=== PATIENT | female | born 1965 | race Caucasian/White ===

== ENCOUNTER → 2016-08-01 | Outpatient (CLI) | payer OTHER ==
--- NOTE | 2016-08-12 09:50 | MM ---
Reason for exam: screening (asymptomatic). Last mammogram was performed 5 years and 4 months ago. History: Patient is postmenopausal. Family history of breast cancer in paternal grandmother at age 80. Benign excisional biopsy of the right breast. Physical Findings: A clinical breast exam by your physician is recommended on an annual basis and results should be correlated with mammographic findings. MG Screening Mammo w CAD Bilateral CC and MLO view(s) were taken. Prior study comparison: March 19, 2011, mammogram, performed at [place]. The breast tissue is heterogeneously dense. This may lower the sensitivity of mammography. There is no discrete abnormality. No significant changes when compared with prior studies. ASSESSMENT: Benign, BI-RAD 2 RECOMMENDATION: Routine screening mammogram of both breasts in 1 year.
== END | disposition home or self-care (01) ==
LOC: RADMAMWWP 07:17
PROVIDERS: ATTEND Internal Medicine
DX: Z12.31 Encounter for screening mammogram for malignant neoplasm of breast (principal)

== ENCOUNTER → 2017-08-27 | Outpatient (CLI) | payer OTHER ==
--- NOTE | 2017-08-27 10:25 | MM ---
Reason for exam: clinical finding. Last mammogram was performed 1 year and 1 month ago. History: Patient is postmenopausal. Family history of breast cancer in paternal grandmother at age 80. Benign excisional biopsy of the right breast. Indicated problem(s): lump or thickening in the left breast. Physical Findings: Nurse did not find any significant physical abnormalities on exam. MG Diagnostic Mammo w CAD CHAD Bilateral CC and MLO view(s) were taken. Prior study comparison: August 01, 2016, bilateral MG screening mammo w CAD. March 19, 2011, mammogram, performed at [place]. There are scattered fibroglandular densities. There is no discrete abnormality. No significant new findings when compared with previous films. These results were verbally communicated with the patient and result sheet given to the patient on 08/27/17. ASSESSMENT: Benign, BI-RAD 2 RECOMMENDATION: Routine screening mammogram of both breasts in 1 year. Manage on a clinical basis with regard to palpable abnormality.
--- NOTE | 2017-08-27 10:34 | USB ---
Reason for exam: clinical finding. History: Patient is postmenopausal. Family history of breast cancer in paternal grandmother at age 80. Benign excisional biopsy of the right breast. Indicated problem(s): lump or thickening in the left breast. US Breast LT Left breast ultrasound includes all four quadrants, the retroareolar region and axilla. Finding demonstrates no cystic or solid lesion seen. These results were verbally communicated with the patient and result sheet given to the patient on 08/27/17. ASSESSMENT: Negative, BI-RAD 1 RECOMMENDATION: Routine screening mammogram of both breasts in 1 year. Manage on a clinical basis with regard to palpable abnormality.
== END | disposition home or self-care (01) ==
LOC: RADMAMWWP 08:43
PROVIDERS: ATTEND Internal Medicine
DX: N63.20 Unspecified lump in the left breast, unspecified quadrant (principal)
CPT/HCPCS: 77066

== ENCOUNTER → 2019-12-15 | Outpatient (CLI) | payer OTHER ==
[2019-12-15 17:59] LABS: Chol/HDL Ratio 4.15; LDL Cholesterol,Calculated 133.4 mg/dL (0.0-131.0); VLDL Calculation 30.6 mg/dL (5.00-40.00)
== END | disposition home or self-care (01) ==
LOC: LABWHC1 09:00
PROVIDERS: ATTEND Family Medicine
DX: E11.9 Type 2 diabetes mellitus without complications (principal); I10 Essential (primary) hypertension
CPT/HCPCS: 36415; 80061; 83036

== ENCOUNTER 2021-11-22 07:43 | Inpatient (IN) | payer MEDICAID, OTHER ==
--- NOTE | 2021-11-22 08:08 | ED ---
Psych HPI - General Source: patient, police, RN notes reviewed Mode of arrival: ambulatory Limitations: no limitations <Wilfred Holman - Last Filed: 11/22/21 11:43> <Joaquin Naryaanan - Last Filed: 11/22/21 16:05> - General Chief Complaint: Psychiatric Symptoms Stated Complaint: Mental Health supervisor curing room order Time Seen by Provider: 11/22/21 07:49 - History of Present Illness Initial Comments: This a 56-year-old female presents emergency Department with police for psychiatric evaluation. Patient was petitioned by family member as she's had a manic bizarre behavior. Patient's been having some paranoia. Patient's no prior much information as she has severe flight of ideas, no insight on current condition. She denies any medications she is not given Ancef she has any diagnosis of schizophrenia bipolar disorder. She does admit to some alcohol use occasionally no drug abuse. Patient denies any physical complaints. (Wilfred Holman) - Related Data Allergies Allergy/AdvReac Type Severity Reaction Status Date / Time No Known Allergies Allergy Verified 11/22/21 12:37 Review of Systems ROS Other: All systems not noted in ROS Statement are negative. <Wilfred Holman - Last Filed: 11/22/21 11:43> ROS Other: All systems not noted in ROS Statement are negative. <Joaquin Narayanan - Last Filed: 11/22/21 16:05> ROS Statement: Those systems with pertinent positive or pertinent negative responses have been documented in the HPI. Past Medical History Past Medical History: No Reported History History of Any Multi-Drug Resistant Organisms: None Reported Past Surgical History: No Surgical Hx Reported Past Psychological History: Anxiety Smoking Status: Current every day smoker Past Alcohol Use History: Occasional Past Drug Use History: None Reported <Wilfred Holman - Last Filed: 11/22/21 11:43> General Exam Limitations: no limitations General appearance: alert, in no apparent distress Head exam: Present: atraumatic, normocephalic, normal inspection Eye exam: Present: normal appearance, PERRL, EOMI. Absent: scleral icterus, conjunctival injection, periorbital swelling ENT exam: Present: normal exam, normal oropharynx, mucous membranes moist Neck exam: Present: normal inspection, full ROM. Absent: tenderness, meningismus, lymphadenopathy Respiratory exam: Present: normal lung sounds bilaterally. Absent: respiratory distress, wheezes, rales, rhonchi, stridor Cardiovascular Exam: Present: regular rate, normal rhythm, normal heart sounds. Absent: systolic murmur, diastolic murmur, rubs, gallop, clicks Neurological exam: Present: alert Psychiatric exam: Present: manic, other (Patient has severe flight of ideas, rambling thoughts.) <Wilfred Holman - Last Filed: 11/22/21 11:43> Course Vital Signs 11/22/21 07:46 Temperature 98.5 F Pulse Rate 101 H Respiratory 18 Rate Blood Pressure 126/83 O2 Sat by Pulse 98 Oximetry Medical Decision Making <Joaquin Narayanan - Last Filed: 11/22/21 16:05> - Medical Decision Making Patient will be admitted to inpatient psych. I completed the cert after evaluation of the patient. (Joaquin Narayanan) - Lab Data Lab Results 11/22/21 11/22/21 Range/Units 08:20 13:10 Urine Opiates Screen Not Detected (NotDetected) Ur Oxycodone Screen Not Detected (NotDetected) Urine Methadone Screen Not Detected (NotDetected) Ur Propoxyphene Screen Not Detected (NotDetected) Ur Barbiturates Screen Not Detected (NotDetected) U Tricyclic Antidepress Not Detected (NotDetected) Ur Phencyclidine Scrn Not Detected (NotDetected) Ur Amphetamines Screen Not Detected (NotDetected) U Methamphetamines Scrn Not Detected (NotDetected) U Benzodiazepines Scrn Not Detected (NotDetected) Urine Cocaine Screen Not Detected (NotDetected) U Marijuana (THC) Screen Not Detected (NotDetected) Coronavirus (PCR) Not Detected (Not Detectd) Disposition Time of Disposition: 11:57 <Wilfred Holman - Last Filed: 11/22/21 11:43> <Joaquin Narayanan - Last Filed: 11/22/21 16:05> Clinical Impression: Bipolar disorder Disposition: TRANSFER TO PSYCH HOSP/UNIT Condition: Fair
[2021-11-22 08:58] LABS: Amphetamine Screen,Urine Not Detected (NotDetected); Barbiturate Screen,Urine Not Detected (NotDetected); Benzodiazepines Screen,Urine Not Detected (NotDetected); Cocaine Screen,Urine Not Detected (NotDetected); Methadone Screen, Urine Not Detected (NotDetected); Opiate Screen,Urine Not Detected (NotDetected); Oxycodone Screen, Urine Not Detected (NotDetected); Phencyclidine Screen,Urine Not Detected (NotDetected); Tricyclic Antidepressant,Urine Not Detected (NotDetected); Urn Cannabinoid Scrn Not Detected (NotDetected)
[2021-11-22] MEDS ORDERED: HALOPERIDOL LACTATE 5 MG/ML 1 ML VIAL IM PRN (14:24)
[2021-11-22] MEDS ORDERED: LORazepam 1 MG TAB PO PRN (14:24)
[2021-11-22] MEDS ORDERED: MAG HYDROX/AL HYDROX/SIMETH 30 ML CUP PO PRN (14:24)
[2021-11-22] MEDS ORDERED: ACETAMINOPHEN TAB 325 MG TAB PO PRN (14:24)
[2021-11-22] MEDS ORDERED: haloperidoL 5 MG TAB PO PRN (14:26)
[2021-11-22] MEDS ORDERED: LORazepam 2 MG/ML INJ IM PRN (14:26)
[2021-11-22 16:05] LABS: Appearance,Urine Cloudy (Clear); Bacteria,Urine Occasional /hpf; Bilirubin,Urine Negative (Negative); Blood,Urine Negative (Negative); Color,Urine Yellow; Glucose,Urine (UA) Negative (Negative); Ketones,Urine Negative (Negative); Leukocyte Esterase,Urine Negative (Negative); Mucus,Urine Few /hpf; Nitrite,Urine Negative (Negative); PH, Urine 6.5 (5.0-8.0); Protein,Urine Trace (Negative); RBC,Urine 1 /hpf (0-5); Specific Gravity,Urine 1.025 (1.001-1.035); Squamous Epithelial Cell,Urine 2 /hpf (0-4); WBC,Urine 7 /hpf (0-5)
[2021-11-23] MEDS ORDERED: NICOTINE 14MG/24HR PATCH TRANSDERM SCH (09:00)
[2021-11-23 11:20] LABS: Basophils # (A) 0.1 k/uL (0-0.2); Basophils % (A) 1 %; Eosinophils # (A) 0.1 k/uL (0-0.7); Eosinophils % (A) 1 %; HCT 41.2 % (34.0-46.0); HGB 13.7 gm/dL (11.4-16.0); Lymphocytes # (A) 2.6 k/uL (1.0-4.8); Lymphocytes % (A) 25 %; MCH 30.3 pg (25.0-35.0); MCHC 33.3 g/dL (31.0-37.0); MCV 91.1 fL (80.0-100.0); Mean Platelet Volume 8.4; Monocytes # (A) 0.5 k/uL (0-1.0); Monocytes % (A) 5 %; Neutrophils # (A) 7.2 k/uL (1.3-7.7); Neutrophils % (A) 68 %; Platelet Count 243 k/uL (150-450); RBC 4.52 m/uL (3.80-5.40); RDW 12.1 % (11.5-15.5); WBC 10.6 k/uL (3.8-10.6)
[2021-11-23 11:57] LABS: ALT 18 U/L (4-34); AST 24 U/L (14-36); African American GFR (CKD) >90 (>60 ml/min/1.73 sqM); Albumin 4.5 g/dL (3.5-5.0); Alkaline Phosphatase 85 U/L (38-126); Anion Gap 9 mmol/L; Bilirubin, Delta 0.1 mg/dL (0.0-0.2); Bilirubin,Unconjugated 0.4 mg/dL (0.0-1.1); Blood Urea Nitrogen 14 mg/dL (7-17); Carbon Dioxide 24 mmol/L (22-30); Chloride 104 mmol/L (98-107); Glucose 99 mg/dL (74-99); Non-African American GFR(CKD) >90 (>60 ml/min/1.73 sqM); Potassium 4.3 mmol/L (3.5-5.1); Sodium 137 mmol/L (137-145); Total Bilirubin 0.5 mg/dL (0.2-1.3); Total Protein 7.2 g/dL (6.3-8.2)
--- NOTE | 2021-11-23 13:16 | P.HP ---
Psychiatric H&P - . H&P Date: 11/23/21 History & Physical: Allergies Allergy/AdvReac Type Severity Reaction Status Date / Time No Known Allergies Allergy Verified 11/22/21 12:37 Vital Signs Temp 97.9 F 11/23/21 07:12 Pulse 109 H 11/23/21 07:12 Resp 18 11/23/21 07:12 BP 120/85 11/23/21 07:12 Pulse Ox 98 11/23/21 07:12 FiO2 Intake & Output 11/22/21 11/23/21 11/23/21 18:59 06:59 18:59 Weight 73.074 kg Laboratory Last Values WBC 10.6 k/uL (3.8-10.6) 11/23/21 10:27 RBC 4.52 m/uL (3.80-5.40) 11/23/21 10:27 Hgb 13.7 gm/dL (11.4-16.0) 11/23/21 10:27 Hct 41.2 % (34.0-46.0) 11/23/21 10:27 MCV 91.1 fL (80.0-100.0) 11/23/21 10:27 MCH 30.3 pg (25.0-35.0) 11/23/21 10:27 MCHC 33.3 g/dL (31.0-37.0) 11/23/21 10:27 RDW 12.1 % (11.5-15.5) 11/23/21 10:27 Plt Count 243 k/uL (150-450) 11/23/21 10:27 MPV 8.4 11/23/21 10:27 Neutrophils % 68 % 11/23/21 10:27 Lymphocytes % 25 % 11/23/21 10:27 Monocytes % 5 % 11/23/21 10:27 Eosinophils % 1 % 11/23/21 10:27 Basophils % 1 % 11/23/21 10:27 Neutrophils # 7.2 k/uL (1.3-7.7) 11/23/21 10:27 Lymphocytes # 2.6 k/uL (1.0-4.8) 11/23/21 10:27 Monocytes # 0.5 k/uL (0-1.0) 11/23/21 10:27 Eosinophils # 0.1 k/uL (0-0.7) 11/23/21 10:27 Basophils # 0.1 k/uL (0-0.2) 11/23/21 10:27 Urine Color Yellow 11/22/21 08:20 Urine Appearance Cloudy (Clear) H 11/22/21 08:20 Urine pH 6.5 (5.0-8.0) 11/22/21 08:20 Ur Specific [place] 1.025 (1.001-1.035) 11/22/21 08:20 Urine Protein Trace (Negative) H 11/22/21 08:20 Urine Glucose (UA) Negative (Negative) 11/22/21 08:20 Urine Ketones Negative (Negative) 11/22/21 08:20 Urine Blood Negative (Negative) 11/22/21 08:20 Urine Nitrite Negative (Negative) 11/22/21 08:20 Urine Bilirubin Negative (Negative) 11/22/21 08:20 Urine Urobilinogen 2.0 mg/dL (<2.0) 11/22/21 08:20 Ur Leukocyte Esterase Negative (Negative) 11/22/21 08:20 Urine RBC 1 /hpf (0-5) 11/22/21 08:20 Urine WBC 7 /hpf (0-5) H 11/22/21 08:20 Ur Squamous Epith Cells 2 /hpf (0-4) 11/22/21 08:20 Urine Bacteria Occasional /hpf (None) H 11/22/21 08:20 Urine Mucus Few /hpf (None) H 11/22/21 08:20 Urine HCG, Qual Not Detected (Not Detectd) 11/22/21 08:20 Urine Opiates Screen Not Detected (NotDetected) 11/22/21 08:20 Ur Oxycodone Screen Not Detected (NotDetected) 11/22/21 08:20 Urine Methadone Screen Not Detected (NotDetected) 11/22/21 08:20 Ur Propoxyphene Screen Not Detected (NotDetected) 11/22/21 08:20 Ur Barbiturates Screen Not Detected (NotDetected) 11/22/21 08:20 U Tricyclic Antidepress Not Detected (NotDetected) 11/22/21 08:20 Ur Phencyclidine Scrn Not Detected (NotDetected) 11/22/21 08:20 Ur Amphetamines Screen Not Detected (NotDetected) 11/22/21 08:20 U Methamphetamines Scrn Not Detected (NotDetected) 11/22/21 08:20 U Benzodiazepines Scrn Not Detected (NotDetected) 11/22/21 08:20 Urine Cocaine Screen Not Detected (NotDetected) 11/22/21 08:20 U Marijuana (THC) Screen Not Detected (NotDetected) 11/22/21 08:20 Coronavirus (PCR) Not Detected (Not Detectd) 11/22/21 13:10 11/23/21 11:31 IDENTIFYING DATA: Patient is a 56-year-old female currently , homeless and has one son. HPI: Patient presented to the hospital yesterday with police escort for psychiatric evaluation. Patient apparently was petitioned by her family. Patient was seen to be disorganized, pressured in speech and also bizarre. Patient was admitted involuntarily to the mental health unit. Patient's UDS was negative. Patient was seen today by grant writer in the office and agreeable to speak. Patient had pressured speech, rambles flight of ideas. She was tangential/circumstantial. She spoke about trying to get to a skilled nursing and claims that she is "in between houses". She states that she is having financial difficulties and was not able to pay her rent. She states that she was walking down the side of the road with her bags in her hand and was pulled over by the police and taken to the hospital. She states that she does not know why. She has fairly poor insight into her condition. She does state that she has a history of bipolar disorder however took herself off her medication states that "I don't think I need them". She is grandiose and claims that she is "high strung". She is denying any depression today. Denying any anxiety. She does endorse some paranoia. She also is endorsing auditory hallucinations coming through the "baseboards in the wall". She states her sleep has been fair appetite as been fair. Patient denies any suicidal or homicidal ideations intent or plan. At this time patient denies any visual hallucinations. Patient admits to using cigarettes daily. PAST PSYCHIATRIC HISTORY: Patient states that she has a history of bipolar disorder. Patient denies being on any psychiatric medications. Patient denies any previous psychiatric hospitalizations. Patient denies any psychiatric outpatient follow-up. Patient denies any history of suicide attempts in the past. PMH:denies ALLERGIES: as per EMR CHEMICAL DEPENDENCY HISTORY: as per HPI FAMILY PSYCHIATRIC/SUBSTANCE USE HISTORY: denies SOCIAL HISTORY: Patient was born and raised in [place]. She states that she completed high school and also her bachelor's degree. She was unreliable historian of her social history. MENTAL STATUS EXAM: General Appearance: Patient appears to be dressed in home in street clothing, stated age is alert, difficult to redirect. Patient appears to have poor hygiene and grooming. Behavior: Patient is seated without any agitated behavior. Difficult to redirect. Speech: Patient's speech is rapid/pressured. Rambles. Mood/Affect: Patient reports their mood is "okay", affect is congruent and constricted. Suicidality/Homicidality: Patient denies having any homicidal ideation intent or plan. Denies any suicidal ideations intent or plan Perceptions: Patient denies any visual hallucinations at [place] auditory hallucinations. Though content/process: Tangential/circumstantial. Rambling, flight of ideas. Grandiosity. Memory and concentration: AOX3, grossly intact for the purposes of this session. Can spell "WORLD" backwards Judgment and insight: poor STRENGTHS/WEAKNESSES: strength is that patient is resilient. Weakness is that patient has poor judgment and is impulsive INTELLECT: average IMPRESSIONS: Bipolar disorder, current episode nasrin with psychotic features PLAN: -Patient is admitted under involuntary status to MHU for stabilization of psychiatric symptoms and safety. Patient has not signed adult voluntary form and medication consent and is placed in patient's chart. A second certification was completed and along with petition will be filed for court. -Medications : Will start patient on Depakote 250 mg 3 times a day for mood stabilization, paliperidone by mouth 3 mg daily at bedtime for mood stabilization/psychosis. -Ativan and Haldol PRN for agitation/aggression -Patient was informed of the risks, benefits and side effects of the medication -Internal Medicine consult to perform medical evaluation and physical. -NRT - nicotine patch -SW on board for discharge planning. Encourage patient to participate in groups to work on coping skills. Will await deferral and court date. 11/23/21 13:10
[2021-11-23] MEDS: DIVALPROEX ER 250 MG TAB.ER.24H PO SCH ×3 (13:33→21:15)
--- NOTE | 2021-11-23 14:41 | P.MDCNMH ---
History of Present Illness H&P Date: 11/23/21 This is a 56-year-old female male who was recently brought into the emergency department by the police as patient was having manic bazaar behavior as noted by family at home and patient was petitioned by family member and also having some increased paranoia and anxiety. Patient hesitant to provide any medical information on exam although did make mention that she follows or did follow with Dr. Ondina Gaffney in the outpatient setting and has been doing relatively well off any medications and did not need any medications for anything. Patient denies any medical history and also mentioned that she will contact us or a medical doctor if she seeks medical attention. Patient reported to smoking and occasional drinking and denies any other drug use. Patient is admitted on [address]. psychiatric unit petitioned for psychiatric evaluation. Patient is slightly anxious on exam and still exhibiting signs of paranoia. During the exam patient also reported she does not want Dr. Gaffney to be notified of this admission. Review Of Systems: Constitutional: No fever, no chills, no night sweats. No weight change. No weakness, fatigue or lethargy. No daytime sleepiness. EENT: No headache. No blurred vision or double vision, no loss of vision. No loss of Hearing, no ringing in the ears, no dizziness. No nasal drainage or congestion. No epistaxis. No sore throat. Lungs: No shortness of breath, cough, no sputum production. No wheezing. Cardiovascular: No chest pain, no lower extremity edema. No palpitations. No paroxysmal nocturnal dyspnea. No orthopnea. No lightheadedness or dizziness. No syncopal episodes. Abdominal: Reports some mild lower right quadrant abdominal pain. No nausea, vomiting. No diarrhea. No constipation. No bloody or tarry stools.. No loss of appetite. Genitourinary: No dysuria, increased frequency, urgency. No urinary retention. Musculoskeletal: No myalgias. No muscle weakness, no gait dysfunction, no frequent falls. No back pain. No neck pain. Integumentary: No wounds, no lesions. No rash or pruritus. No unusual bruising. No change in hair or nails. Neurologic: No aphasia. No facial droop. No change in mentation. No head injury. No headache. No paralysis. No paresthesia. Psychiatric: No depression. No anxiety. No mood swings. Endocrine: No abnormal blood sugars. No weight change. No excessive sweating or thirst. No cold intolerance. PHYSICAL EXAMINATION: GENERAL: The patient is alert and oriented x4, anxious, paranoid, Well developed, well nourished. HEENT: Pupils are round and equally reacting to light. EOMI. no scleral icterus. No conjunctival pallor. Normocephalic, atraumatic. No pharyngeal erythema. No thyromegaly. CARDIOVASCULAR: S1 and S2 muffled PULMONARY: Clear to auscultation with no wheezing or rhonchi noted. ABDOMEN: soft. non-distended, normoactive bowel sounds. No palpable organomegaly. Abdominal binder noted MUSCULOSKELETAL: No joint swelling or deformity. EXTREMITIES: No cyanosis, clubbing, or pedal edema. NEUROLOGICAL: Gross neurological examination did not reveal any focal deficits. Steady gait SKIN: No rashes. Assessment: Manic episode with psychotic features Racing thoughts Anxiety Possible bipolar disorder Continued ongoing nicotine dependence Petition by family for bizarre behavior Full code Plan: Recommend to continue with current medications and management per psychiatry services. Attempted to perform a complete history and physical on the patient while admitted to the inpatient psychiatric unit and patient initially was agreeable to the visit although became more paranoid and making multiple comments that she does not need medications or medical services and does not want her primary care provider Dr. Gaffney to be notified of this admission. Patient denies any chest pain or shortness of breath, denies lightheadedness or dizziness, reports she is not taking any medications in the outpatient setting, and denies any nausea or vomiting and is tolerating diet. Attempted to encourage the patient to follow-up with primary care provider to discuss any med ications once discharged from the psychiatric unit. She has been petitioned by family and brought here by police and involuntarily signed into the psychiatric unit. Labs were reviewed and within normal limits and urine drug screen along with Covid that was also reviewed and negative. Thank you for this consultation and please do not hesitate to contact us if needed. The impression and plan of care has been dictated by Jaimee Sanchez, nurse practitioner as directed. Dr. Vivi MD I have performed a history and examination and MDM of this patient, discussed the same with the dictator, and agree with the dictator's assessment and plan as written ,documented as a scribe. Based on total visit time, I have performed more than 50% of the visit. Any additional findings or plans will be noted. Past Medical History Past Medical History: No Reported History History of Any Multi-Drug Resistant Organisms: None Reported Past Surgical History: No Surgical Hx Reported Past Anesthesia/Blood Transfusion Reactions: No Reported Reaction Past Psychological History: Anxiety Smoking Status: Current every day smoker Past Alcohol Use History: None Reported, Occasional Past Drug Use History: None Reported Medications and Allergies Home Medications Medication Instructions Recorded Confirmed Type No Known Home Medications 11/22/21 11/22/21 History Allergies Allergy/AdvReac Type Severity Reaction Status Date / Time No Known Allergies Allergy Verified 11/22/21 12:37 Physical Exam Vitals: Vital Signs Temp Pulse Pulse Resp BP BP Pulse Ox 11/23/21 07:12 97.9 F 109 H 18 120/85 98 11/22/21 15:57 98 F 97 18 156/85 96 11/22/21 14:16 94 18 124/81 96 Intake and Output 11/22/21 11/23/21 11/23/21 22:59 06:59 14:59 Other: Weight 73.074 kg Cranial Nerve Examination - Cranial Nerves Cranial Nerve I- Olfactory: Intact Cranial Nerve II- Optic: Intact Cranial Nerve III- Oculomotor: Intact Cranial Nerve IV- Trochlear: Intact Cranial Nerve V- Trigeminal: Intact Cranial Nerve - Abducens: Intact Cranial Nerve VII- Facial: Intact Cranial Nerve VIII- Auditory: Intact Cranial Nerve IX- Glossopharyngeal: Intact Cranial Nerve X- Vagus: Intact Cranial Nerve XI- Accessory: Intact Cranial Nerve XII- Hypoglossal: Intact Results CBC & Chem 7: 11/23/21 10:27 11/23/21 10:27 Labs: Abnormal Lab Results - Last 24 Hours (Table) 11/22/21 Range/Units 08:20 Urine Appearance Cloudy H (Clear) Urine Protein Trace H (Negative) Urine WBC 7 H (0-5) /hpf Urine Bacteria Occasional H (None) /hpf Urine Mucus Few H (None) /hpf Assessment and Plan Time with Patient: Less than 30
[2021-11-23 18:04] LABS: Chol/HDL Ratio 3.63 Ratio; LDL Cholesterol,Calculated 124.9 mg/dL (0.0-131.0)
[2021-11-23] MEDS: PALIPERIDONE 3 MG TAB.ER.24 PO SCH (21:15)
[2021-11-24] MEDS: NICOTINE 14MG/24HR PATCH TRANSDERM SCH (08:37)
[2021-11-24] MEDS: DIVALPROEX ER 250 MG TAB.ER.24H PO SCH ×3 (08:38→20:39)
[2021-11-24] MEDS ORDERED: NICOTINE GUM (POLACRILEX) 2 MG GUM BUCCAL PRN (10:21)
--- NOTE | 2021-11-24 12:35 | P.PN ---
Subjective Progress Note Date: 11/24/21 Principal diagnosis: IMPRESSIONS: Bipolar disorder, current episode nasrin with psychotic features Patient is a 71 poor historian and continues to ramble with circumstantiality an d tangentiality and is unable to give any specific information Patient reports that she does not call hospitalization as hospitals but more like different residence and that she has been changing her residence multiple times She states that she has been in this residence few of the times She stated that she is also trying to change her residence to get a bigger place so she can accommodate more people Patient continues to ramble on with information that remains noncontributory and projective Reviewing the chart from the previous day reveals the following information: 'HPI: Patient presented to the hospital yesterday with police escort for psychiatric evaluation. Patient apparently was petitioned by her family. Patient was seen to be disorganized, pressured in speech and also bizarre. Patient was admitted involuntarily to the mental health unit. Patient's UDS was negative. Patient was seen today by scenario writer in the office and agreeable to speak. Patient had pressured speech, rambles flight of ideas. She was tangential/circumstantial. She spoke about trying to get to a alf and claims that she is "in between houses". She states that she is having financial difficulties and was not able to pay her rent. She states that she was walking down the side of the road with her bags in her hand and was pulled over by the police and taken to the hospital. She states that she does not know why. She has fairly poor insight into her condition. She does state that she has a his tory of bipolar disorder however took herself off her medication states that "I don't think I need them". She is grandiose and claims that she is "high strung". She is denying any depression today. Denying any anxiety. She does endorse some paranoia. She also is endorsing auditory hallucinations coming through the "baseboards in the wall". She states her sleep has been fair appetite as been fair. Patient denies any suicidal or homicidal ideations intent or plan. At this time patient denies any visual hallucinations. Patient admits to using cigarettes daily. MENTAL STATUS EXAM: General Appearance: Patient appears to be dressed in home in street clothing, stated age is alert, difficult to redirect. Patient appears to have poor hygiene and grooming. Behavior: Patient is seated without any agitated behavior. Difficult to redirect. Speech: Patient's speech is rapid/pressured. Rambles. Mood/Affect: Patient reports their mood is "okay", affect is congruent and constricted. Suicidality/Homicidality: Patient denies having any homicidal ideation intent or plan. Denies any suicidal ideations intent or plan Perceptions: Patient denies any visual hallucinations at [place] auditory maher llucinations. Though content/process: Tangential/circumstantial. Rambling, flight of ideas. Grandiosity. Memory and concentration: AOX3, grossly intact for the purposes of this session. Can spell "WORLD" backwards Judgment and insight: poor STRENGTHS/WEAKNESSES: strength is that patient is resilient. Weakness is that patient has poor judgment and is impulsive INTELLECT: average IMPRESSIONS: Bipolar disorder, current episode nasrin with psychotic features PLAN: -Patient is admitted under involuntary status to MHU for stabilization of psychiatric symptoms and safety. Patient has not signed adult voluntary form and medication consent and is placed in patient's chart. A second certification as also being completed and along with petition will be filed for court. -Medications : Patient has been started on on Depakote 250 mg 3 times a day for mood stabilization, paliperidone by mouth 3 mg daily at bedtime for mood stabilization/psychosis. -Ativan and Haldol PRN for agitation/aggression -Patient was informed of the risks, benefits and side effects of the medication -Internal Medicine consult to perform medical evaluation and physical. -NRT - nicotine patch -SW on board for discharge planning. Encourage patient to participate in groups to work on coping skills. Will await deferral and court date. Donald Riley M.D. 11/24/2021 Objective - Vital Signs Vital signs: Vital Signs Temp 97.8 F 11/24/21 06:56 Pulse 103 H 11/24/21 06:56 Resp 18 11/23/21 07:12 BP 147/60 11/24/21 06:56 Pulse Ox 97 11/24/21 06:56 FiO2 - Labs CBC & Chem 7: 11/23/21 10:27 11/23/21 10:27 Labs: Abnormal Lab Results - Last 24 Hours (Table) 11/23/21 Range/Units 10:27 Cholesterol 209.00 H (0.00-200.00) mg/dL
[2021-11-24] MEDS: PALIPERIDONE 3 MG TAB.ER.24 PO SCH (20:39)
[2021-11-25] MEDS: NICOTINE 14MG/24HR PATCH TRANSDERM SCH (08:30)
[2021-11-25] MEDS: DIVALPROEX ER 250 MG TAB.ER.24H PO SCH ×3 (08:30→21:44)
--- NOTE | 2021-11-25 11:58 | P.PN ---
Subjective Progress Note Date: 11/25/21 Principal diagnosis: IMPRESSIONS: Bipolar disorder, current episode nasrin with psychotic features Patient agreed to be seen by this sba underwriter in the hallway Patient states that she needs to be excused for a little while since she was talking to herself Patient seemed to be carrying on a conversation by herself walking down the hallway She seemed to be responding to internal stimuli She denies that she has any problems or issues Patient remains in denial and remains projective and continues to rationalize MENTAL STATUS EXAM: General Appearance: Patient appears to be dressed in hospital gown, difficult to redirect. Patient appears to have poor hygiene and grooming. Behavior: Patient is walking around without any agitated behavior. Difficult to redirect. Speech: Patient's speech is rapid/pressured. Rambles. Mood/Affect: Patient reports their mood is "okay", affect is congruent and constricted. Suicidality/Homicidality: Patient denies having any homicidal ideation intent or plan. Denies any suicidal ideations intent or plan Perceptions: Patient denies any visual hallucinations at [place] auditory hallucinations. Though content/process: Tangential/circumstantial. Rambling, flight of ideas. Grandiosity. Memory and concentration: AOX3, grossly intact for the purposes of this session. Judgment and insight: poor STRENGTHS/WEAKNESSES: strength is that patient is resilient. Weakness is that patient has poor judgment and is impulsive INTELLECT: average IMPRESSIONS: Bipolar disorder, current episode nasrin with psychotic features PLAN: -Patient is admitted under involuntary status to MHU for stabilization of psychiatric symptoms and safety. Patient has not signed adult voluntary form and medication consent and is placed in patient's chart. A second certification as also being completed and along with petition will be filed for court. -Medications : Patient has been started on on Depakote 250 mg 3 times a day for mood stabilization, paliperidone by mouth 3 mg daily at bedtime for mood stabilization/psychosis. -Ativan and Haldol PRN for agitation/aggression -Patient was informed of the risks, benefits and side effects of the medication -Internal Medicine consult to perform medical evaluation and physical. -NRT - nicotine patch -SW on board for discharge planning. Encourage patient to participate in groups to work on coping skills. Will await deferral and court date. Donald Riley M.D. 11/25/2021 Objective - Vital Signs Vital signs: Vital Signs Temp 97.6 F 11/25/21 06:46 Pulse 113 H 11/25/21 06:46 Resp 18 11/25/21 06:46 BP 113/75 11/25/21 06:46 Pulse Ox 98 11/25/21 06:46 FiO2 Intake & Output 11/24/21 11/25/21 11/25/21 18:59 06:59 18:59 Weight 73.9 kg - Labs CBC & Chem 7: 11/23/21 10:27 11/23/21 10:27
[2021-11-25] MEDS: PALIPERIDONE 3 MG TAB.ER.24 PO SCH (21:44)
[2021-11-26] MEDS: DIVALPROEX ER 250 MG TAB.ER.24H PO SCH (09:03)
[2021-11-26] MEDS: NICOTINE 14MG/24HR PATCH TRANSDERM SCH (09:04)
[2021-11-26] MEDS: DIVALPROEX ER 500 MG TAB.ER.24H PO SCH ×2 (15:57→20:14)
[2021-11-26] MEDS ORDERED: LORazepam 1 MG/0.5 ML VIAL IM PRN (18:42)
--- NOTE | 2021-11-26 18:49 | PN ---
PROGRESS NOTE DATE OF SERVICE: 11/26/2021 CHIEF COMPLAINT: The patient had disorganized and bizarre behavior. She had pressured speech. She was admitted on an involuntary basis. INTERVAL HISTORY: The patient has been doing fair. She had a quiet day yesterday though continued to be fairly symptomatic. She comes out on the unit. She wanders about. She did not attend groups. She was noted to be responding to internal stimuli. Staff documented that she slept 5 hours last night. Today she has been up and out on the unit. She continues to wander about. She has disorganized speech. She attended two groups to a limited extent. When I talked to the patient, it was difficult to engage much in conversation. She voiced no specific complaints or concerns. She appears to tolerate her psychotropic medications. MENTAL STATUS: Patient was restless. She gave fair eye contact. She made various comments that were disconnected from the subject at hand. At times she had some pressured speech and flight of ideas. She spoke in a rambling way and it was difficult to make sense of most of what she was referring to. Her affect was intense. Her mood was quiet. She appeared to be somewhat distressed. She continues to respond to internal stimuli. I was difficult to assess for thoughts of harm. ASSESSMENT: I will continue the current diagnosis and treatment plan. I will increase Depakote up to 500 mg twice a day. We will get a Depakote level tomorrow morning. I will increase her Invega to 6 mg a day. I briefly reviewed medication issues with the patient though kept the discussion limited, as she was not too inclined to engage in the conversation. We will focus on stabilization and discharge planning. MMTRISHL / ROBERTN: [id number] /
[2021-11-26] MEDS ORDERED: PALIPERIDONE 6 MG TAB.ER.24 PO SCH (21:00)
[2021-11-27] MEDS: NICOTINE 14MG/24HR PATCH TRANSDERM SCH (08:48)
[2021-11-27] MEDS: DIVALPROEX ER 500 MG TAB.ER.24H PO SCH ×2 (12:04→21:20)
--- NOTE | 2021-11-27 12:12 | P.PN ---
Progress Note - Text Progress Note Date: 11/27/21 Interval History: Patient was seen wandering the hallways and was directable and agreeable to kylie eldridge with policy writer in the office. Patient continues to have rapid speech however this has been improving. Continues to be tangential/circumstantial arbors improving mildly. She rambles at times during conversation. She states that her mood is "okay" and is denying any depression or anxiety today. She is showing improvement in her grandiosity. She continues to state that she is homeless and does not know where to go upon discharge. She states that she is only gone to some groups. She states that she is improving overall and is agreeable to continue with medications. She states that she was able to sleep better last night. At this time patient denies any suicidal or homical ideations, intent or plan. Patient denies any auditory, visual hallucinations and denies any paranoia or delusions. Patient denies any side effects from the medications and has been compliant with meds. She did claim that she is feeling dizziness and intolerability to the paliperidone at nighttime and is agreeable to have switched. Mental Status Exam: General Appearance: Patient appears to be dressed in home in street clothing, stated age is alert, directable. Patient appears to have improving hygiene and grooming. Behavior: Patient is seated without any agitated behavior. Difficult to redirect Speech: Patient's speech is rapid/pressured. Rambles, improving mildly Mood/Affect: Patient reports their mood is "ok", affect is congruent Suicidality/Homicidality: Patient denies having any homicidal ideation intent or plan. Denies any suicidal ideations intent or plan Perceptions: Patient denies any visual hallucinations and denies any auditory hallucinations. Though content/process: Tangential/circumstantial. Rambling, flight of ideas. Grandiosity. Improving. Memory and concentration: AOX3, grossly intact for the purposes of this session Judgment and insight: poor, improving mildly. IMPRESSIONS: Bipolar disorder, current episode nasrin with psychotic features Plan: -Patient continues to meet criteria for inpatient psychiatric admission for symptom stabilization and safety. Patient has not signed adult voluntary form and medication consent and was placed in patient's chart. -Medications: Discontinue paliperidone by mouth or place with Seroquel 100 mg daily at bedtime for mood stabilization/psychosis/insomnia. Continue on with Depakote 500 mg twice a day for mood stabilization. -When necessary Ativan and Haldol for agitation/aggression. -NRT -not needed as patient does not smoke -SW on board for discharge planning. Encouraged the patient to participate in milieu. Patient has deferral today with her criminal attorney. Likely discharge in 1-2 days.
[2021-11-27] MEDS ORDERED: PALIPERIDONE 3 MG TAB.ER.24 PO SCH (21:00)
[2021-11-27] MEDS: QUEtiapine 100 MG TAB PO SCH (21:20)
[2021-11-28] MEDS: DIVALPROEX ER 500 MG TAB.ER.24H PO SCH ×2 (09:05→20:03)
--- NOTE | 2021-11-28 12:06 | P.PN ---
Progress Note - Text Progress Note Date: 11/28/21 Interval History: Patient was seen wandering the hallways and was directable and agreeable to sp jazmyn with jingle writer in the office. Patient continues to ramble at times, tangential/circumstantial in thought process. She continues to demonstrate a fairly poor insight and judgment. She is denying any changes in her mood and states that she feels "fine". We spoke about her not deferring yesterday with the attorney recruiter however she was fairly focused on discharge today. She claims that she is going to some groups intending to participate. She is not endorsing paranoia or delusions today. She states that she was able to sleep better last night. At this time patient denies any suicidal or homical ideations, intent or plan. Patient denies any auditory, visual hallucinations and denies any paranoia or delusions. Patient denies any side effects from the medications and has been compliant with meds. Mental Status Exam: General Appearance: Patient appears to be dressed in home in street clothing, stated age is alert, directable. Patient appears to have improving hygiene and grooming. Behavior: Patient is seated without any agitated behavior. Her directable today. Speech: Patient's speech is rapid/pressured. Rambles, improving mildly Mood/Affect: Patient reports their mood is "fine", affect is congruent Suicidality/Homicidality: Patient denies having any homicidal ideation intent or plan. Denies any suicidal ideations intent or plan Perceptions: Patient denies any visual hallucinations and denies any auditory hallucinations. Though content/process: Tangential/circumstantial. Rambling, flight of ideas, improving Memory and concentration: AOX3, grossly intact for the purposes of this session Judgment and insight: poor, improving mildly. IMPRESSIONS: Bipolar disorder, current episode nasrin with psychotic features Plan: -Patient continues to meet criteria for inpatient psychiatric admission for symptom stabilization and safety. Patient has not signed adult voluntary form and medication consent and was placed in patient's chart. -Medications: Seroquel 100 mg daily at bedtime for mood stabilization/psychosis/insomnia. Continue on with Depakote 500 mg twice a day for mood stabilization. -When necessary Ativan and Haldol for agitation/aggression. -NRT -not needed as patient does not smoke -SW on board for discharge planning. Encouraged the patient to participate in milieu. Patient did not defer with attorney recruiter and awaiting court date on 12/12.
[2021-11-28] MEDS: QUEtiapine 100 MG TAB PO SCH (20:03)
[2021-11-29] MEDS: DIVALPROEX ER 500 MG TAB.ER.24H PO SCH ×2 (08:57→21:12)
--- NOTE | 2021-11-29 09:42 | P.PN ---
Progress Note - Text Progress Note Date: 11/29/21 Interval History: Patient was seen wandering the hallways and was directable and agreeable to kylie eldridge with underwriter in the office. Patient continues to ramble at times, tangential/circumstantial in thought process, mildly improving. She continues to demonstrate a fairly poor insight and judgment which appears to be chronic. she claims that her mood is okay at this time and is denying any depression or anxiety. She asked several questions about the court process and the involvement of the drugs today. She appears to be difficult to interrupt and redirect during conversation. She states that she slept fairly well last night. She is not endorsing paranoia or delusions today. At this time patient denies any suicidal or homical ideations, intent or plan. Patient denies any auditory, visual hallucinations and denies any paranoia or delusions. Patient denies any side effects from the medications and has been compliant with meds. Mental Status Exam: General Appearance: Patient appears to be dressed in home in street clothing, stated age is alert, directable. Patient appears to have improving hygiene and grooming Behavior: Patient is seated without any agitated behavior. more directable today. Speech: Patient's speech is rapid/pressured. Rambles, improving mildly Mood/Affect: Patient reports their mood is "ok", affect is congruent Suicidality/Homicidality: Patient denies having any homicidal ideation intent or plan. Denies any suicidal ideations intent or plan Perceptions: Patient denies any visual hallucinations and denies any auditory hallucinations. Though content/process: Tangential/circumstantial. Rambling, flight of ideas, improving Memory and concentration: AOX3, grossly intact for the purposes of this session Judgment and insight: chronically poor, improving mildly. IMPRESSIONS: schizoaffective disorder, bipolar type Plan: -Patient continues to meet criteria for inpatient psychiatric admission for symptom stabilization and safety. Patient has not signed adult voluntary form and medication consent and was placed in patient's chart. -Medications: increase Seroquel 150 mg daily at bedtime for mood stabilization/psychosis/insomnia. Continue on with Depakote 500 mg twice a day for mood stabilization. -check depakote level tomorrow morning. -When necessary Ativan and Haldol for agitation/aggression. -NRT -not needed as patient does not smoke -SW on board for discharge planning. Encouraged the patient to participate in milieu. Patient did not defer with trademark attorney and awaiting court date on 12/12.
[2021-11-29] MEDS ORDERED: QUEtiapine 50 MG TAB PO SCH (21:00)
[2021-11-30 07:04] VITALS: RESP 16
[2021-11-30] MEDS: DIVALPROEX ER 500 MG TAB.ER.24H PO SCH ×2 (08:44→09:43)
[2021-11-30] MEDS ORDERED: flUPHENAZine 2.5 MG/ML (MDV) 10 ML VIAL IM PRN (11:58)
--- NOTE | 2021-11-30 12:02 | P.PN ---
Progress Note - Text Progress Note Date: 11/30/21 Interval History: Patient was seen wandering the hallways and was directable and agreeable to kylie eldridge with greeting card writer in the office. Patient continues to ramble at times, tangential/circumstantial in thought process, mildly improving. She is still difficult to interrupt and redirect during conversation. She made some illogical statements during conversation and spoke about her marriage. She claims that she did not take the Depakote this morning however did not give a clear reason why. She claims that she would prefer to take the Depakote at nighttime at 750 mg dose. She was agreeable to have her Seroquel increased. She states that she is going to some groups. She states that she slept fairly well last night. She is not endorsing paranoia or delusions today. At this time patient denies any suicidal or homical ideations, intent or plan. Patient denies any auditory, visual hallucinations and denies any paranoia or delusions. Patient denies any side effects from the medications and has been compliant with meds. Mental Status Exam: General Appearance: Patient appears to be dressed in home in street clothing, stated age is alert, directable. Patient appears to have improving hygiene and grooming Behavior: Patient is seated without any agitated behavior. more directable today. Speech: Patient's speech is rapid/pressured. Rambles, improving mildly Mood/Affect: Patient reports their mood is "alright", affect is congruent Suicidality/Homicidality: Patient denies having any homicidal ideation intent or plan. Denies any suicidal ideations intent or plan Perceptions: Patient denies any visual hallucinations and denies any auditory hallucinations. Though content/process: Tangential/circumstantial. Rambling, flight of ideas, improving Memory and concentration: AOX3, grossly intact for the purposes of this session Judgment and insight: chronically poor, improving mildly. IMPRESSIONS: schizoaffective disorder, bipolar type Plan: -Patient continues to meet criteria for inpatient psychiatric admission for symptom stabilization and safety. Patient has not signed adult voluntary form and medication consent and was placed in patient's chart. -Medications: increase Seroquel 200 mg daily at bedtime for mood stabilization/psychosis/insomnia. As per patient's request, will change Depakote ER to 750 mg daily at bedtime for mood stabilization. -When necessary Ativan and Haldol for agitation/aggression. -NRT -not needed as patient does not smoke -SW on board for discharge planning. Encouraged the patient to participate in milieu. Patient did not defer with flatwork ironer and awaiting court date on 12/12. patient signed waive and stip. likely discharge friday if patient continues to improve over the weekend.
[2021-11-30] MEDS ORDERED: QUEtiapine 200 MG TAB PO SCH (21:00)
[2021-11-30] MEDS ORDERED: DIVALPROEX ER 250 MG TAB.ER.24H PO SCH (21:00)
--- NOTE | 2021-12-01 16:18 | P.PN ---
Progress Note - Text Progress Note Date: 12/01/21 Interval History: Patient knocked on the psychiatrist's office door and asked to be seen. She tita ears intrusive and irritable, can be difficult to redirect at times. Her thought process consists of loose associations, tangential/circumstantial, and thought content is laced with paranoid delusions. She rambles about moving out of state ([place] or [place])...."with my government experience, doesn't get data, news can only give limited information, has been limited over the past 3 years, has become homicidal in her apartment, not performing it...I would never do that, take out an innocent bystander, deep down gut feeling, strive for independence, I feel like family is getting sucked down the situation I'm in ....I'm in the unknown too, so moving to a different state where they could take me in as an individual, because I'm mid-libertarian, not republic or constitution party, ...." Birthday cards, gifts will not be sent, totally abused and fraudulant, [employer] of life in the rigoberto cristin was even hacked, but they call me paranoid. At this time patient denies any active suicidal or homicidal ideations, intent or plan. Patient denies any auditory, visual hallucinations. Patient denies any side effects from the medications, but argues about her medications, does not want to take medications and wants to take the lowest dose possible despite being still showing symptoms of nasrin and psychosis. Mental Status Exam: General Appearance: Patient appears to be dressed in home in street clothing. Patient appears to have improving hygiene and grooming Behavior: Patient is seated without any agitated behavior, is irritable and difficult to redirect. Speech: Patient's speech is rapid/pressured. Rambles. Mood/Affect: Patient reports their mood is "alright", affect is congruent Suicidality/Homicidality: Patient denies having any homicidal ideation intent or plan. Denies any suicidal ideations intent or plan Perceptions: Patient denies any visual hallucinations and denies any auditory hallucinations. Though content/process: Tangential/circumstantial. Rambling, flight of ideas, loose associations. Memory and concentration: AOX3, grossly intact for the purposes of this session Judgment and insight: chronically poor, improving mildly. IMPRESSIONS: Schizoaffective disorder, bipolar type Plan: -Patient continues to meet criteria for inpatient psychiatric admission for symptom stabilization and safety. Patient has not signed adult voluntary form and medication consent and was placed in patient's chart. -Medications: Increase Seroquel to 300 mg QHS for mood stabilization/psychosis/insomnia. Increase Depakote ER to 1000 mg QHS for mood stabilization. -When necessary Ativan and Haldol for agitation/aggression. -NRT -not needed as patient does not smoke -SW on board for discharge planning. Encouraged the patient to participate in milieu. Patient did not defer with employment attorney and awaiting court date on 12/12. patient signed waive and stip. likely discharge friday if patient continues to improve over the weekend.
[2021-12-01] MEDS: DIVALPROEX ER 500 MG TAB.ER.24H PO SCH (20:49)
[2021-12-01] MEDS: QUEtiapine 100 MG TAB PO SCH (20:51)
--- NOTE | 2021-12-02 18:11 | P.PN ---
Progress Note - Text Progress Note Date: 12/02/21 Interval History: Patient was found in her room, drinking her water. She is dismissive and condes cending on assessment. Her thought process consists of loose associations, with pressured speech. She states her Mood is "fine", and that her day has been "restful, perfect". She appears to minimize her mood symptoms in order to hasten discharge. Staff reports she continues to display manic symptoms, pressured speech, rambling, intrusive, talking about "a long lost brother" that she needs to find. She has been withdrawn and isolating to her room today, is focused on discharge and states she is "anxious" to talk to the director of social services tomorrow to get herself set up with [facility]. Her insight and judgment remain poor. She has been requesting discharge from the nurses multiple times today. She is partially compliant with medications, took only 100 mg of her 300 mg dose of Seroquel last night, and took only 500 mg of her 1000 mg dose of Depakote last night. Mental Status Exam: General Appearance: Patient appears to be stated age, dressed in casual attire. Behavior: Patient is seated without any agitated behavior, is irritable and dismissive. Speech: Patient's speech is rapid but less pressured. Mood/Affect: Patient reports their mood is "restful, perfect", affect is congruent Suicidality/Homicidality: Patient denies having any homicidal ideation intent or plan. Denies any suicidal ideations intent or plan Perceptions: Patient denies any visual hallucinations and denies any auditory hallucinations. Though content/process: Rambling, dismissive. Memory and concentration: AOX3, grossly intact for the purposes of this session Judgment and insight: chronically poor. IMPRESSIONS: Schizoaffective disorder, bipolar type Plan: -Patient continues to meet criteria for inpatient psychiatric admission for symptom stabilization and safety. Patient has not signed adult voluntary form an d medication consent and was placed in patient's chart. -Medications: Continue Seroquel 300 mg QHS for mood stabilization/psychosis/insomnia. Continue Depakote ER 1000 mg QHS for mood stabilization. Encourage medication compliance. -When necessary Ativan and Haldol for agitation/aggression. -NRT -not needed as patient does not smoke -SW on board for discharge planning. Encouraged the patient to participate in milieu. Patient did not defer with state attorney and awaiting court date on 12/12. patient signed waive and stip. likely discharge friday if patient continues to improve over the weekend.
[2021-12-02] MEDS: QUEtiapine 100 MG TAB PO SCH (21:26)
[2021-12-02] MEDS: DIVALPROEX ER 500 MG TAB.ER.24H PO SCH (21:26)
--- NOTE | 2021-12-03 11:11 | P.PN ---
Progress Note - Text Progress Note Date: 12/03/21 Interval History: Patient was seen wandering the hallways and was directable and agreeable to kylie eldridge with com writer in the office. Patient continues to ramble at times, tangential/circumstantial in thought process however this is improving significantly. She is more oriented and easier to direct during conversation. She is also more appropriate in her answers. She claims that she feels she is almost ready for discharge and does not know where she is going to go. She claims that she did try to speak with her sister over the phone however was fairly vague about what they talked about. She claims that her mood and anxiety of an improving. She states that she is going to some groups. She states that she slept fairly well last night. She is not endorsing paranoia or delusions today. At this time patient denies any suicidal or homical ideations, intent or plan. Patient denies any auditory, visual hallucinations and denies any paranoia or delusions. Patient denies any side effects from the medications and has been compliant with meds. Mental Status Exam: General Appearance: Patient appears to be dressed in home in street clothing, stated age is alert, directable. Patient appears to have improving hygiene and grooming Behavior: Patient is seated without any agitated behavior. more directable today. Speech: Patient's speech is rapid/pressured. Rambles, improving mildly Mood/Affect: Patient reports their mood is "ok", affect is congruent Suicidality/Homicidality: Patient denies having any homicidal ideation intent or plan. Denies any suicidal ideations intent or plan Perceptions: Patient denies any visual hallucinations and denies any auditory hallucinations. Though content/process: Tangential/circumstantial. Rambling, improving Memory and concentration: AOX3, grossly intact for the purposes of this session Judgment and insight: chronically poor, improving mildly. IMPRESSIONS: schizoaffective disorder, bipolar type Plan: -Patient continues to meet criteria for inpatient psychiatric admission for symptom stabilization and safety. Patient has not signed adult voluntary form and medication consent and was placed in patient's chart. -Medications: Seroquel 300 mg daily at bedtime for mood stabilization/psychosis/insomnia. Depakote ER 1000 mg daily at bedtime for mood stabilization. -When necessary Ativan and Haldol for agitation/aggression. -NRT -not needed as patient does not smoke -SW on board for discharge planning. Encouraged the patient to participate in milieu. patient signed waive and stip and is now on a treatment order. likely discharge tomorrow, patient will be visited by and enrolled in [facility] program through [facility] and also will be staying in a motel upon discharge.
[2021-12-03] MEDS: QUEtiapine 100 MG TAB PO SCH (20:46)
[2021-12-03] MEDS: DIVALPROEX ER 500 MG TAB.ER.24H PO SCH (20:46)
[2021-12-04 06:36] VITALS: BP 116/60; PULSE 65; TEMP 98
--- NOTE | 2021-12-04 09:27 | P.DS ---
Providers Date of admission: 11/22/21 14:22 Expected date of discharge: 12/04/21 Attending physician: Jaskaran Jmienes MD Consults: 11/22/21 14:24 Consult Physician Routine Consulting Provider: Jovanna Nichols Consult Reason/Comments: Medical H&P Do you want consulting provider notified?: Yes Primary care physician: Ondina Gaffney - Discharge Diagnosis(es) (1) Schizoaffective disorder, bipolar type Current Visit: Yes Status: Acute Priority: High Hospital Course: Admission HPI: Admission note was completed by freelance copywriter "Patient is a 56-year-old female currently , homeless and has one son. Patient presented to the hospital yesterday with police escort for psychiatric evaluation. Patient apparently was petitioned by her family. Patient was seen to be disorganized, pressured in speech and also bizarre. Patient was admitted involuntarily to the mental health unit. Patient's UDS was negative. Patient was seen today by freelance copywriter in the office and agreeable to speak. Patient had pressured speech, rambles flight of ideas. She was tangential/circumstantial. She spoke about trying to get to a [facility] and claims that she is "in between houses". She states that she is having financial difficulties and was not able to pay her rent. She states that she was walking down the side of the road with her bags in her hand and was pulled over by the police and taken to the hospital. She states that she does not know why. She has fairly poor insight into her condition. She does state that she has a history of bipolar disorder however took herself off her medication states that "I don't think I need them". She is grandiose and claims that she is "high strung". She is denying any depression today. Denying any anxiety. She does endorse some paranoia. She also is endorsing auditory hallucinations coming through the "baseboards in the wall". She states her sleep has been fair appetite as been fair. Patient denies any suicidal or homicidal ideations intent or plan. At this time patient denies any visual hallucinations. Patient admits to using cigarettes daily." Hospital course: Upon admission to the unit patient was admitted involuntarily on a petition and certificate and a second certificate was completed and faxed with the courts. Patient ended up not deferring with her employee benefits attorney however was taking medications and then later on agreeable to sign the waive and stip. Patient got along well with other patients on the unit and followed unit protocol. Patient was compliant with the medications and denied any side effects throughout hospital course. Patient was started on Seroquel and increased to a dose of 300 mg daily at bedtime for mood stabilization/insomnia. Patient was also started on Depakote ER 1000 mg daily at bedtime for mood stabilization. Patient spoke of her stressors and engaged in therapy both group and individual. Patient was also seen by medical team for history and physical exam. Throughout the course of the hospitalization patient gradually improved with regards to mood, anxiety, sleep and became more future oriented with improved insight and judgment. On the day of discharge patient denied any suicidal or homicidal ideations intent or plan denied any auditory or visual hallucinations. Patient endorsed wanting to live for her future and to find housing. The patient denied any access to guns or weapons. Patient denied any paranoia and did not endorse any delusions. Patient does not have a significant history of substance abuse and was counseled on abstaining from all substances including alcohol and marijuana. Patient was also counseled on the medications and need for regular compliance and was encouraged to follow-up with their outpatient appointment for mental health and also for primary care. Prior to discharge a family meeting will be arranged by geriatric social worker to answer any questions and ensure safety upon discharge. Patient's guardian/sister is going to pay for patient to stay in a motel until a more permanent housing situation arises. Mental status exam: General Appearance: Patient appears to be stated age is alert, pleasant, and cooperative. Patient is in no acute distress and has improved hygiene and grooming Behavior: Patient is calmly seated without any agitated behavior. Speech: Patient's speech is fluent and nonpressured. Rambling at times. Mood/Affect: Patient reports their mood is "good", affect is congruent and euthymic. Suicidality/Homicidality: Patient denies having any suicidal or homicidal ideation intent or plan. Perceptions: Patient denies any auditory or visual hallucinations. Though content/process: There is no evidence of any delusional thought content and thought process is linear and goal-directed. more future oriented Memory and concentration: AOX3, grossly intact for the purposes of this session. Can spell "WORLD" backwards correctly. Judgment and insight: chronically poor, however has improved with guarded prognosis Impression: Schizoaffective disorder, bipolar type Plan: -Continue with discharge today as patient has improved and stabilized psychiatrically and is not currently an imminent threat to herself and/or others. -Continue medications: Depakote ER 1000 mg daily at bedtime for mood stabilization, Seroquel 300 mg daily at bedtime for mood stabilization/insomnia. -Patient was counseled on the need for medication compliance and appropriate follow-up at mental health and also primary care for medical issues. Patient verbalized understanding and agreed. -Social work to arrange for and conduct family meeting to ensure safety upon discharge and answer any questions/concerns. Social work also to arrange for patients follow up appointments with [facility] for psychiatric care along with follow up with primary care provider. -Patient counseled on abstaining from recreational drugs and marijuana and alcohol. Was informed/educated on the adverse effects on their physical and mental health. Patient verbally agreed and understood. -Patient was instructed to return to the hospital or seek immediate medical care if their psychiatric or medical symptoms do worsen or reoccur. Allergies Allergy/AdvReac Type Severity Reaction Status Date / Time No Known Allergies Allergy Verified 11/22/21 12:37 Laboratory Results WBC 10.6 k/uL (3.8-10.6) 11/23/21 10:27 RBC 4.52 m/uL (3.80-5.40) 11/23/21 10:27 Hgb 13.7 gm/dL (11.4-16.0) 11/23/21 10:27 Hct 41.2 % (34.0-46.0) 11/23/21 10:27 MCV 91.1 fL (80.0-100.0) 11/23/21 10:27 MCH 30.3 pg (25.0-35.0) 11/23/21 10:27 MCHC 33.3 g/dL (31.0-37.0) 11/23/21 10:27 RDW 12.1 % (11.5-15.5) 11/23/21 10:27 Plt Count 243 k/uL (150-450) 11/23/21 10:27 MPV 8.4 11/23/21 10:27 Neutrophils % 68 % 11/23/21 10:27 Lymphocytes % 25 % 11/23/21 10:27 Monocytes % 5 % 11/23/21 10:27 Eosinophils % 1 % 11/23/21 10:27 Basophils % 1 % 11/23/21 10:27 Neutrophils # 7.2 k/uL (1.3-7.7) 11/23/21 10:27 Lymphocytes # 2.6 k/uL (1.0-4.8) 11/23/21 10:27 Monocytes # 0.5 k/uL (0-1.0) 11/23/21 10:27 Eosinophils # 0.1 k/uL (0-0.7) 11/23/21 10:27 Basophils # 0.1 k/uL (0-0.2) 11/23/21 10:27 Sodium 137 mmol/L (137-145) 11/23/21 10:27 Potassium 4.3 mmol/L (3.5-5.1) 11/23/21 10:27 Chloride 104 mmol/L (98-107) 11/23/21 10:27 Carbon Dioxide 24 mmol/L (22-30) 11/23/21 10:27 Anion Gap 9 mmol/L 11/23/21 10:27 BUN 14 mg/dL (7-17) 11/23/21 10:27 Creatinine 0.57 mg/dL (0.52-1.04) 11/23/21 10:27 Est GFR (CKD-EPI)AfAm >90 (>60 ml/min/1.73 sqM) 11/23/21 10:27 Est GFR (CKD-EPI)NonAf >90 (>60 ml/min/1.73 sqM) 11/23/21 10:27 Glucose 99 mg/dL (74-99) 11/23/21 10:[address] Glu mg/dL 124 11/23/21 10:27 Hemoglobin A1c 6.0 % (0.0-6.0) 11/23/21 10:27 Calcium 9.0 mg/dL (8.4-10.2) 11/23/21 10:27 Total Bilirubin 0.5 mg/dL (0.2-1.3) 11/23/21 10:27 Conjugated Bilirubin 0.0 mg/dL (0.0-0.3) 11/23/21 10:27 Unconjugated Bilirubin 0.4 mg/dL (0.0-1.1) 11/23/21 10:27 Delta Bilirubin 0.1 mg/dL (0.0-0.2) 11/23/21 10:27 AST 24 U/L (14-36) 11/23/21 10:27 ALT 18 U/L (4-34) 11/23/21 10:27 Alkaline Phosphatase 85 U/L (38-126) 11/23/21 10:27 Total Protein 7.2 g/dL (6.3-8.2) 11/23/21 10:27 Albumin 4.5 g/dL (3.5-5.0) 11/23/21 10:27 Triglycerides 133.00 mg/dL (0.00-149.00) 11/23/21 10:27 Cholesterol 209.00 mg/dL (0.00-200.00) H 11/23/21 10:27 LDL Cholesterol, Calc 124.9 mg/dL (0.0-131.0) 11/23/21 10:27 VLDL Cholesterol, Calc 26.60 mg/dL (5.00-40.00) 11/23/21 10:27 HDL Cholesterol 57.50 mg/dL (40.00-60.00) 11/23/21 10:27 Cholesterol/HDL Ratio 3.63 Ratio 11/23/21 10:27 TSH 1.820 mIU/L (0.465-4.680) 11/23/21 10:27 Urine Color Yellow 11/22/21 08:20 Urine Appearance Cloudy (Clear) H 11/22/21 08:20 Urine pH 6.5 (5.0-8.0) 11/22/21 08:20 Ur Specific [place] 1.025 (1.001-1.035) 11/22/21 08:20 Urine Protein Trace (Negative) H 11/22/21 08:20 Urine Glucose (UA) Negative (Negative) 11/22/21 08:20 Urine Ketones Negative (Negative) 11/22/21 08:20 Urine Blood Negative (Negative) 11/22/21 08:20 Urine Nitrite Negative (Negative) 11/22/21 08:20 Urine Bilirubin Negative (Negative) 11/22/21 08:20 Urine Urobilinogen 2.0 mg/dL (<2.0) 11/22/21 08:20 Ur Leukocyte Esterase Negative (Negative) 11/22/21 08:20 Urine RBC 1 /hpf (0-5) 11/22/21 08:20 Urine WBC 7 /hpf (0-5) H 11/22/21 08:20 Ur Squamous Epith Cells 2 /hpf (0-4) 11/22/21 08:20 Urine Bacteria Occasional /hpf (None) H 11/22/21 08:20 Urine Mucus Few /hpf (None) H 11/22/21 08:20 Urine HCG, Qual Not Detected (Not Detectd) 11/22/21 08:20 Urine Opiates Screen Not Detected (NotDetected) 11/22/21 08:20 Ur Oxycodone Screen Not Detected (NotDetected) 11/22/21 08:20 Urine Methadone Screen Not Detected (NotDetected) 11/22/21 08:20 Ur Propoxyphene Screen Not Detected (NotDetected) 11/22/21 08:20 Ur Barbiturates Screen Not Detected (NotDetected) 11/22/21 08:20 U Tricyclic Antidepress Not Detected (NotDetected) 11/22/21 08:20 Ur Phencyclidine Scrn Not Detected (NotDetected) 11/22/21 08:20 Ur Amphetamines Screen Not Detected (NotDetected) 11/22/21 08:20 U Methamphetamines Scrn Not Detected (NotDetected) 11/22/21 08:20 U Benzodiazepines Scrn Not Detected (NotDetected) 11/22/21 08:20 Urine Cocaine Screen Not Detected (NotDetected) 11/22/21 08:20 U Marijuana (THC) Screen Not Detected (NotDetected) 11/22/21 08:20 Coronavirus (PCR) Not Detected (Not Detectd) 11/22/21 13:10 Vital Signs Temp 98.0 F 12/04/21 06:35 Pulse 65 12/04/21 06:35 Resp 16 12/04/21 06:35 BP 116/60 12/04/21 06:35 Pulse Ox 95 12/04/21 06:35 FiO2 Patient Condition at Discharge: Stable Plan - Discharge Summary Discharge Rx Participant: Yes New Discharge Prescriptions: New Divalproex ER [Depakote ER] 1,000 mg PO HS 30 Days tab QUEtiapine [SEROquel] 300 mg PO HS 30 Days tab Discharge Medication List Divalproex ER [Depakote ER] 1,000 mg PO HS 30 Days tab 12/04/21 [Rx] QUEtiapine [SEROquel] 300 mg PO HS 30 Days tab 12/04/21 [Rx] Follow up Appointment(s)/Referral(s): Referral, Referral [Other] - 12/04/21 4:00 pm Ondina Gaffney MD [Primary Care Provider] - 1-2 days Activity/Diet/Wound Care/Special Instructions: Avoid the use of street drugs and alcohol. Take all prescriptions as prescribed. When you are in need of refills on your medications, please contact your medical provider and/or outpatient psychiatrist to have this done. Please go to scheduled outpatient appointment for aftercare treatment. If symptoms return or become worse, call the crisis line at and/or go to the nearest emergency room for evaluation. Discharge Disposition: OTHER INSTITUTION NOT DEFINED
== END 2021-12-04 16:40 | disposition home or self-care (01) | DRG 885 ==
LOC: EC 07:43 → 3MHU 14:22
PROVIDERS: ADMIT Psychiatry & Neurology Psychiatry; ATTEND Psychiatry & Neurology Psychiatry
DX: F25.0 Schizoaffective disorder, bipolar type (principal); F17.210 Nicotine dependence, cigarettes, uncomplicated; F41.9 Anxiety disorder, unspecified; R42 Dizziness and giddiness; T43.595A Adverse effect of other antipsychotics and neuroleptics, initial encounter; G47.00 Insomnia, unspecified; Z59.00 Homelessness unspecified; Z63.5 Disruption of family by separation and divorce; Z91.83 Wandering in diseases classified elsewhere; Z20.822 Contact with and (suspected) exposure to COVID-19; Z28.21 Immunization not carried out because of patient refusal; Z71.89 Other specified counseling
CPT/HCPCS: 80053; 80061; 80306; 81001; 81025; 82075; 82248; 83036; 84443; 85025; 87635; 99285

== ENCOUNTER 2021-12-17 12:11 | Inpatient (IN) | payer MEDICARE, OTHER ==
--- NOTE | 2021-12-17 12:53 | ED ---
General Adult HPI - General Chief complaint: Psychiatric Symptoms Stated complaint: mental health Time Seen by Provider: 12/17/21 12:30 Source: patient, police, RN notes reviewed, old records reviewed Mode of arrival: ambulatory Limitations: no limitations - History of Present Illness Initial comments: This is a 56-year-old female presents emergency Department under a court order. Patient refuses to cooperate. Patient states she is not going to talk about any of her mental health history and most of the psychiatrist. Patient will not answer any of my questions relative to mental health. She did state she has no physical complaints today. Patient denies any fever chills or cough. Patient denies any injuries patient denies any pain or difficulty breathing. - Related Data Previous Rx's Medication Instructions Recorded Divalproex ER [Depakote ER] 1,000 mg PO HS 30 Days tab 12/04/21 QUEtiapine [SEROquel] 300 mg PO HS 30 Days tab 12/04/21 Allergies Allergy/AdvReac Type Severity Reaction Status Date / Time No Known Allergies Allergy Verified 12/17/21 13:45 Review of Systems ROS Statement: Those systems with pertinent positive or pertinent negative responses have been documented in the HPI. ROS Other: All systems not noted in ROS Statement are negative. Past Medical History Past Medical History: No Reported History History of Any Multi-Drug Resistant Organisms: None Reported Past Surgical History: No Surgical Hx Reported Past Anesthesia/Blood Transfusion Reactions: No Reported Reaction Past Psychological History: Anxiety Smoking Status: Current every day smoker Past Alcohol Use History: None Reported, Occasional Past Drug Use History: None Reported General Exam - General Exam Comments Initial Comments: GENERAL: Patient is well-developed and well-nourished. Patient is nontoxic and well- hydrated and is in no acute distress. ENT: Neck is soft and supple. No significant lymphadenopathy is noted. Oropharynx is clear. Moist mucous membranes. Neck has full range of motion without eliciting any pain. EYES: The sclera were anicteric and conjunctiva were pink and moist. Extraocular movements were intact and pupils were equal round and reactive to light. Eyelids were unremarkable. PULMONARY: Unlabored respirations. Good breath sounds bilaterally. No audible rales rhonchi or wheezing was noted. CARDIOVASCULAR: There is a regular rate and rhythm without any murmurs gallops or rubs. ABDOMEN: Soft and nontender with normal bowel sounds. SKIN: Skin is clear with no lesions or rashes and otherwise unremarkable. NEUROLOGIC: Patient is alert and oriented x3. Cranial nerves II through XII are grossly intact. Motor and sensory are also intact. Normal speech, volume and content. Symmetrical smile. MUSCULOSKELETAL: Normal extremities with adequate strength and full range of motion. LYMPHATICS: No significant lymphadenopathy is noted PSYCHIATRIC: Patient refuses to answer any of my questions but she is somewhat hyperverbal and has told me she is not going to cooperate with me. Patient also states that everybody is lying about her. Limitations: no limitations Course Vital Signs 12/17/21 12:26 Temperature 98.8 F Pulse Rate 116 H Respiratory 18 Rate Blood Pressure 160/104 O2 Sat by Pulse 95 Oximetry Medical Decision Making - Lab Data Lab Results 12/17/21 Range/Units 13:06 Urine Opiates Screen Not Detected (NotDetected) Ur Oxycodone Screen Not Detected (NotDetected) Urine Methadone Screen Not Detected (NotDetected) Ur Propoxyphene Screen Not Detected (NotDetected) Ur Barbiturates Screen Not Detected (NotDetected) U Tricyclic Antidepress Not Detected (NotDetected) Ur Phencyclidine Scrn Not Detected (NotDetected) Ur Amphetamines Screen Not Detected (NotDetected) U Methamphetamines Scrn Not Detected (NotDetected) U Benzodiazepines Scrn Not Detected (NotDetected) Urine Cocaine Screen Not Detected (NotDetected) U Marijuana (THC) Screen Not Detected (NotDetected) Disposition Clinical Impression: Acute psychosis, Medical non-compliance Disposition: ADMITTED IP TO THIS HOSP Referrals: Ondina Gaffney MD [Primary Care Provider] - 1-2 days Time of Disposition: 17:46
[2021-12-17 13:35] LABS: Amphetamine Screen,Urine Not Detected (NotDetected); Barbiturate Screen,Urine Not Detected (NotDetected); Benzodiazepines Screen,Urine Not Detected (NotDetected); Cocaine Screen,Urine Not Detected (NotDetected); Methadone Screen, Urine Not Detected (NotDetected); Opiate Screen,Urine Not Detected (NotDetected); Oxycodone Screen, Urine Not Detected (NotDetected); Phencyclidine Screen,Urine Not Detected (NotDetected); Tricyclic Antidepressant,Urine Not Detected (NotDetected); Urn Cannabinoid Scrn Not Detected (NotDetected)
[2021-12-17] MEDS ORDERED: MAGNESIUM HYDROXIDE 2,400 MG/10 ML CUP PO PRN (23:17)
[2021-12-17] MEDS ORDERED: LORazepam 1 MG TAB PO PRN (23:17)
[2021-12-17] MEDS ORDERED: MAG HYDROX/AL HYDROX/SIMETH 30 ML CUP PO PRN (23:17)
[2021-12-17] MEDS ORDERED: HALOPERIDOL LACTATE 5 MG/ML 1 ML VIAL IM PRN (23:17)
[2021-12-17] MEDS ORDERED: ACETAMINOPHEN TAB 325 MG TAB PO PRN (23:17)
[2021-12-17] MEDS ORDERED: LORazepam 2 MG/ML INJ IM PRN (23:19)
[2021-12-17] MEDS ORDERED: haloperidoL 5 MG TAB PO PRN (23:19)
[2021-12-18] MEDS ORDERED: NICOTINE 14MG/24HR PATCH TRANSDERM SCH (09:00)
--- NOTE | 2021-12-18 10:33 | P.HP ---
Psychiatric H&P - . H&P Date: 12/18/21 History & Physical: Allergies Allergy/AdvReac Type Severity Reaction Status Date / Time No Known Allergies Allergy Verified 12/17/21 13:45 Vital Signs Temp 97.8 F 12/18/21 00:06 Pulse 91 12/18/21 00:06 Resp 18 12/18/21 00:06 BP 128/84 12/18/21 00:06 Pulse Ox 96 12/18/21 00:06 FiO2 Intake & Output 12/17/21 12/18/21 12/18/21 18:59 06:59 18:59 Weight 83.915 kg 72.178 kg Laboratory Last Values Urine Opiates Screen Not Detected (NotDetected) 12/17/21 13:06 Ur Oxycodone Screen Not Detected (NotDetected) 12/17/21 13:06 Urine Methadone Screen Not Detected (NotDetected) 12/17/21 13:06 Ur Propoxyphene Screen Not Detected (NotDetected) 12/17/21 13:06 Ur Barbiturates Screen Not Detected (NotDetected) 12/17/21 13:06 U Tricyclic Antidepress Not Detected (NotDetected) 12/17/21 13:06 Ur Phencyclidine Scrn Not Detected (NotDetected) 12/17/21 13:06 Ur Amphetamines Screen Not Detected (NotDetected) 12/17/21 13:06 U Methamphetamines Scrn Not Detected (NotDetected) 12/17/21 13:06 U Benzodiazepines Scrn Not Detected (NotDetected) 12/17/21 13:06 Urine Cocaine Screen Not Detected (NotDetected) 12/17/21 13:06 U Marijuana (THC) Screen Not Detected (NotDetected) 12/17/21 13:06 Coronavirus (PCR) Not Detected (Not Detectd) 12/17/21 19:50 12/18/21 10:00 IDENTIFYING DATA: Patient is a 56-year-old female currently , homeless and has one son. HPI: Patient presented to the hospital yesterday on a pickup order currently on a mental health treatment in order. Patient apparently was a poor historian and uncooperative in the ER and did not believe that she was on a court order. Urine drug screen was negative. Patient was admitted last to the mental health unit less than a month ago and was discharged on Depakote and Seroquel. She signed a waive and stip at that time with her jig and fixture maker and agreed to be on a o rder. Patient apparently did not take any medications once she left the hospital. Today she was seen wandering the hallways and agreeable speech pathology teacher. She was responding to internal stimuli. She was rambling, tangential and has loose associations. She had a flight of ideas. She was bizarre in her speech and thought content. She spoke negatively about her medication and states that "they made me sick" and also claims that she does not need them any longer. Very poor insight and judgment. Difficult to redirect during conversation. Denies any auditory or visual hallucinations. Denies any suicidal or homicidal ideations intent or plan. Claims that she is smoking cigarettes only, denies any other recreational drug use. PAST PSYCHIATRIC HISTORY: Patient states that she has a history of schizoaffective disorder. Patient denies being on any psychiatric medications and stopped taking her Depakote and Seroquel after her previous discharge from the mental health unit in November 2021. Patient denies any psychiatric outpatient follow-up with [facility]. Patient denies any history of suicide attempts in the past. PMH:denies ALLERGIES: as per EMR CHEMICAL DEPENDENCY HISTORY: as per HPI FAMILY PSYCHIATRIC/SUBSTANCE USE HISTORY: denies SOCIAL HISTORY: Patient was born and raised in [place]. She states that she completed high school and also her bachelor's degree. She was unreliable historian of her social history. MENTAL STATUS EXAM: General Appearance: Patient appears to be dressed in home in street clothing, stated age is alert, difficult to redirect. Patient appears to have poor hygiene and grooming. Behavior: Patient is seated without any agitated behavior. Difficult to redirect. Speech: Patient's speech is rapid/pressured. Rambles. Bizarre. Mood/Affect: Patient reports their mood is "fine", affect is congruent and constricted. Suicidality/Homicidality: Patient denies having any homicidal ideation intent or plan. Denies any suicidal ideations intent or plan Perceptions: Patient denies any visual hallucinations at [place] auditory hallucinations. Though content/process: Tangential/circumstantial. Rambling, flight of ideas. Grandiosity. It is our content. Memory and concentration: AOX3, grossly intact for the purposes of this session. Cannot spell "WORLD" backwards Judgment and insight: poor STRENGTHS/WEAKNESSES: strength is that patient is resilient. Weakness is that patient has poor judgment and is impulsive and noncompliant with treatment and follow-up. INTELLECT: average IMPRESSIONS: Schizoaffective disorder, bipolar type nicotine dependence PLAN: -Patient is admitted under involuntary statusas patient is currently on an ARABELLA to the MHU for stabilization of psychiatric symptoms and safety. -Medications : Depakote 1000 mg QHS for mood stabilization, will start risperdal 1 mg bid for psychosis and mood stabilization/psychosis as apparently patient did well on this in the past. PAtient will need to be transitioned onto ELAINE to ensure compliance. -Ativan and Haldol PRN for agitation/aggression -Patient was informed of the risks, benefits and side effects of the medication -Internal Medicine consult to perform medical evaluation and physical. -NRT - nicotine patch -SW on board for discharge planning. Encourage patient to participate in groups to work on coping skills. currently on an ARABELLA. will need to started on a ELAINE frederic richardson d.c 12/18/21 10:15
[2021-12-18] MEDS: risperiDONE 1 MG TAB PO SCH ×2 (10:41→21:21)
--- NOTE | 2021-12-18 11:27 | P.CONS ---
History of Present Illness - Reason for Consult Medical clearance - History of Present Illness Patient is a 56-year-old female is acutely psychotic but pleasant and very tough historian because of her tangentiality flight of ideas lack of train of thought. Pressured speech. Patient states that she that she hurt her finger although doesn't appear to have any infection at this time. Patient wanted me to check her pulse but it didn't let me examine. Patient doesn't do any straight answers regarding smoking use and alcohol use. REVIEW OF SYSTEMS: Unable to obtain much of the review of systems although mostly negative PHYSICAL EXAMINATION: GENERAL: The patient is alert and oriented x3, not in any acute distress. Well developed, well nourished. HEENT: Pupils are round and equally reacting to light. EOMI. No scleral icterus. No conjunctival pallor. Normocephalic, atraumatic. No pharyngeal erythema. No thyromegaly. SKIN: No rashes. Patient had a small heel ulcer from her injury in the right index finger proximally. Most of the physical exam is limited as patient is noncooperative Assessment and plan -Acute psychosis patient is highly noncooperative further management as per psychiatry. Patient appears to be medically stable at this time -Tachycardia secondary to acute psychosis no further intervention at this time from medical perspective Past Medical History Past Medical History: No Reported History History of Any Multi-Drug Resistant Organisms: None Reported Past Surgical History: No Surgical Hx Reported Past Anesthesia/Blood Transfusion Reactions: No Reported Reaction Past Psychological History: Anxiety Smoking Status: Current every day smoker Past Alcohol Use History: None Reported, Occasional Past Drug Use History: None Reported Medications and Allergies Home Medications Medication Instructions Recorded Confirmed Type Divalproex ER [Depakote ER] 1,000 mg PO HS 30 Days tab 12/04/21 12/17/21 Rx QUEtiapine [SEROquel] 300 mg PO HS 30 Days tab 12/04/21 12/17/21 Rx Allergies Allergy/AdvReac Type Severity Reaction Status Date / Time No Known Allergies Allergy Verified 12/17/21 13:45 Physical Exam Vitals: Vital Signs Temp Pulse Pulse Resp BP BP Pulse Ox 12/18/21 00:06 97.8 F 91 18 128/84 96 12/17/21 12:26 98.8 F 116 H 18 160/104 95 Intake and Output 12/17/21 12/18/21 12/18/21 22:59 06:59 14:59 Other: Weight 72.178 kg
[2021-12-18] MEDS ORDERED: QUEtiapine 100 MG TAB PO SCH (21:00)
[2021-12-18] MEDS ORDERED: DIVALPROEX ER 500 MG TAB.ER.24H PO SCH (21:00)
[2021-12-19] MEDS: risperiDONE 1 MG TAB PO SCH (07:49)
--- NOTE | 2021-12-19 11:39 | P.PN ---
Progress Note - Text Progress Note Date: 12/19/21 Interval History: Patient was seen wandering the hallways and was directable and agreeable to kylie eldridge with insurance writer in the office. Patient continues to ramble at times. Illogical and disorganized. She states that she is doing "fine" and continues to have very poor insight and judgment. She continues to believe that she does not need medications. She was difficult to redirect during conversation and made several bizarre statements. She states that she slept fairly last night. She has to maher ve her Depakote switched to the liquid formulation as she had trouble swallowing the pills. Improving appetite. She has been going to some groups. At this time patient denies any suicidal or homical ideations, intent or plan. Patient denies any auditory, visual hallucinations and denies any paranoia or delusions. Patient denies any side effects from the medications and has been compliant with meds. Mental Status Exam: General Appearance: Patient appears to be dressed in home in street clothing, stated age is alert, difficult to redirect. Patient appears to have improving hygiene and grooming. Behavior: Patient is seated without any agitated behavior. Difficult to redirect. Speech: Patient's speech is rapid/pressured. Rambles. Bizarre. Mood/Affect: Patient reports their mood is "fine", affect is congruent and constricted. Suicidality/Homicidality: Patient denies having any homicidal ideation intent or plan. Denies any suicidal ideations intent or plan Perceptions: Patient denies any visual hallucinations at [place] auditory hallucinations. Though content/process: Tangential/circumstantial. Rambling, flight of ideas. Grandiosity, improving mildly. Memory and concentration: AOX3, grossly intact for the purposes of this session Judgment and insight: poor IMPRESSIONS: Schizoaffective disorder, bipolar type nicotine dependence Plan: -Patient continues to meet criteria for inpatient psychiatric admission for symptom stabilization and safety. Patient has not signed medication consent and was placed in patient's chart. -Medications: Switch Depakote to Depakene, 750 mg daily at bedtime for mood stabilization. Increase Risperdal to 2 mg twice a day for psychosis/mood stabilization. Plan will be to transition patient onto long-acting injection to ensure compliance. -When necessary Ativan and Haldol for agitation/aggression. -NRT - nicotine patch -SW on board for discharge planning. Encouraged the patient to participate in milieu. currently on an ARABELLA. will need to started on a ELAINE prior to d.c
[2021-12-19] MEDS: risperiDONE 2 MG TAB PO SCH (20:48)
[2021-12-19] MEDS ORDERED: VALPROIC ACID ORAL SOLN 250 MG/5 ML CUP PO SCH (21:00)
[2021-12-20] MEDS: risperiDONE 2 MG TAB PO SCH (08:41)
--- NOTE | 2021-12-20 09:22 | P.PN ---
Progress Note - Text Progress Note Date: 12/20/21 Interval History: Patient was seen wandering the hallways and was directable and agreeable to sp suzannek with designer writer day. Patient continues to ramble at times and was difficult to redirect. She appears to have improvement in her thought process and is more logical today. She was tangential/circumstantial. She claims that she is doing "okay" and states that she had more close dropped off yesterday. She was not endorsing any delusions today and was not acting bizarre. She asked more appropriate questions to designer writer about discharge and about her medications. She states that she is tolerating them well at this time. She states that she slept fairly last night. She claims that she is doing better with the Depakene liquid formulation and wants to remain on this. Improving appetite. She has been going to some groups. At this time patient denies any suicidal or homical ideations, intent or plan. Patient denies any auditory, visual hallucinations and denies any paranoia or delusions. Patient denies any side effects from the medications and has been compliant with meds. Mental Status Exam: General Appearance: Patient appears to be dressed in home in street clothing, stated age is alert, difficult to redirect. Patient appears to have improving hygiene and grooming. Behavior: Patient is seated without any agitated behavior. Difficult to redirect, improving mildly Speech: Patient's speech is rapid/pressured. Rambles. Mood/Affect: Patient reports their mood is "ok", affect is congruent and constricted. Suicidality/Homicidality: Patient denies having any homicidal ideation intent or plan. Denies any suicidal ideations intent or plan Perceptions: Patient denies any visual hallucinations at dinner and any auditory hallucinations. Though content/process: Tangential/circumstantial. Rambling, flight of ideas, improving mildly. Memory and concentration: AOX3, grossly intact for the purposes of this session Judgment and insight: Chronically poor, improving mildly IMPRESSIONS: Schizoaffective disorder, bipolar type nicotine dependence Plan: -Patient continues to meet criteria for inpatient psychiatric admission for symptom stabilization and safety. Patient has not signed medication consent and was placed in patient's chart. -Medications: Increase Depakene, 1000 mg daily at bedtime for mood stabilization. Increase Risperdal to 3 mg twice a day for psychosis/mood stabilization. Plan will be to transition patient onto long-acting injection to ensure compliance. -When necessary Ativan and Haldol for agitation/aggression. -NRT - nicotine patch -SW on board for discharge planning. Encouraged the patient to participate in milieu. currently on an ARABELLA. will need to started on a ELAINE prior to d.c. likely discharge next week.
[2021-12-20] MEDS: VALPROIC ACID ORAL SOLN 250 MG/5 ML CUP PO SCH (20:35)
[2021-12-20] MEDS: risperiDONE 1 MG TAB PO SCH (20:35)
[2021-12-21] MEDS: risperiDONE 1 MG TAB PO SCH ×3 (10:28→22:11)
--- NOTE | 2021-12-21 11:51 | P.PN ---
Progress Note - Text Progress Note Date: 12/21/21 Interval History: Patient was seen wandering the hallways and was directable and agreeable to kylie eldridge with gag writer day. Patient continues to ramble at times and was mildly more directable today during conversation. She appears to be more logical today and her thought process. She continues to speak about her medications and was resistant to having her Depakote increased. She claims that she was taking her medications prior to coming into the hospital and appeared to be upset that people were saying that she wasn't. She states that she is going to groups however was vague about what she is learning. She claims that her mood has been improving. She continues to have an animal insight into her condition and need for treatment. She is agreeable to continue on with her medications and we spoke about long-acting injection which will be given tomorrow which she was agreeable to. Improving appetite. At this time patient denies any suicidal or homical ideations, intent or plan. Patient denies any auditory, visual hallucinations. Patient denies any side effects from the medications and has been compliant with meds. Mental Status Exam: General Appearance: Patient appears to be dressed in home in street clothing, stated age is alert, difficult to redirect. Patient appears to have improving hygiene and grooming. Behavior: Patient is seated without any agitated behavior. Difficult to redirect, improving mildly Speech: Patient's speech is rapid/pressured. Rambles, improving mildly. Mood/Affect: Patient reports their mood is "great", affect is congruent Suicidality/Homicidality: Patient denies having any homicidal ideation intent or plan. Denies any suicidal ideations intent or plan Perceptions: Patient denies any visual hallucinations at denies any auditory hallucinations. Though content/process: Tangential/circumstantial. Rambling, flight of ideas, improving mildly. more logical today and more directable Memory and concentration: AOX3, grossly intact for the purposes of this session Judgment and insight: Chronically poor, improving mildly IMPRESSIONS: Schizoaffective disorder, bipolar type nicotine dependence Plan: -Patient continues to meet criteria for inpatient psychiatric admission for symptom stabilization and safety. Patient has not signed medication consent and was placed in patient's chart. -Medications: Increase Depakene, 1000 mg daily at bedtime +250 MG DAILY for mood stabilization. Risperdal to 3 mg twice a day for psychosis/mood stabilization. Plan will be to transition patient onto long-acting injection and will give Invega Sustenna 234 mg IM loading dose friday morning. -check vpa level tomorrow. -When necessary Ativan and Haldol for agitation/aggression. -NRT - nicotine patch -SW on board for discharge planning. Encouraged the patient to participate in milieu. currently on an ARABELLA. will need to started on a ELAINE prior to d.c. likely discharge next week.
[2021-12-21] MEDS: VALPROIC ACID ORAL SOLN 250 MG/5 ML CUP PO SCH ×3 (14:40→22:13)
[2021-12-22] MEDS ORDERED: PALIPERIDONE IM 234 MG/1.5 ML SYG IM ONE (09:00)
[2021-12-22] MEDS: risperiDONE 1 MG TAB PO SCH ×2 (10:07→21:01)
[2021-12-22] MEDS: VALPROIC ACID ORAL SOLN 250 MG/5 ML CUP PO SCH ×2 (10:08→21:01)
--- NOTE | 2021-12-22 20:27 | P.PN ---
Progress Note - Text Progress Note Date: 12/22/21 Interval History: Patient was seen sitting in the hallway and was directable and agreeable to spe ak with typewriter assembly and parts inspector today. Patient continues to ramble at times and still mildly pressured, but much more pleasant and is superficially cooperative. She was compliant with her Invega Sustenna injection earlier today and denies medication side effects. She reports good mood, sleep and appetite, however her insight and judgment are chronically poor. At this time patient denies any suicidal or homicidal ideations, intent or plan. Patient denies any auditory, visual hallucinations. Patient denies any side effects from the medications and has been compliant with meds. She is focused on discharge. Depakene level was drawn this morning and is therapeutic at 74.7 (range 50-120). Mental Status Exam: General Appearance: Patient appears stated age, is dressed in casual attire with fair hygiene. Behavior: Patient is not agitated but does ramble. Superficially cooperative. Speech: Patient's speech is rapid/pressured, rambles, loud tone. Mood/Affect: Patient reports their mood is "good", affect is constricted Suicidality/Homicidality: Patient denies having any suicidal or homicidal ideation intent or plan. Perceptions: Patient denies any visual hallucinations at denies any auditory hallucinations. Though process: Rambling, but more logical today and more directable, stays on topic Thought content: Stays on topic, talks about her medications and discharge Memory and concentration: AOX3, grossly intact for the purposes of this session Judgment and insight: Chronically poor, improving mildly IMPRESSIONS: Schizoaffective disorder, bipolar type Nicotine dependence Plan: -Patient continues to meet criteria for inpatient psychiatric admission for symptom stabilization and safety. -Medications: Continue Depakene 1000 mg daily at bedtime +250 MG DAILY for mood stabilization. Continue Risperdal 3 mg twice a day for psychosis/mood stabilization for now to bridge. Invega Sustenna 234 mg IM loading dose given this morning (12/22/21) and tolerated well. She will need booster dose of 156 mg IM in 7 days. -Depakene level reviewed and is therapeutic at 74.7 (range 50-120), however she may benefit from a slight adjustment to the dose when she is willing. -When necessary Ativan and Haldol for agitation/aggression. -NRT - nicotine patch -Encouraged the patient to participate in milieu.
[2021-12-23] MEDS: VALPROIC ACID ORAL SOLN 250 MG/5 ML CUP PO SCH ×2 (08:59→20:38)
[2021-12-23] MEDS: risperiDONE 1 MG TAB PO SCH ×2 (08:59→20:38)
--- NOTE | 2021-12-23 14:06 | P.PN ---
Progress Note - Text Progress Note Date: 12/23/21 Interval History: Patient was seen laying in her room and was agreeable to speak with va underwriter ervin parmar. Patient continues to be pressured and ramble, but is pleasant and appears superficially cooperative. She is compliant with her prescribed medications but when we discussed increasing her Depakene to 500 mg in the morning and 1000 mg at bedtime, she declines stating she does not want to have side effects. She denies side effects currently expect for some minor soreness at the Invega Sustenna injection site. She reports good mood, sleep and appetite, however her insight and judgment are chronically poor. At this time patient denies any suicidal or homicidal ideations, intent or plan. Patient denies any auditory, visual hallucinations. Mental Status Exam: General Appearance: Patient appears stated age, is dressed in casual attire with fair hygiene. Behavior: Patient is not agitated but does ramble. Superficially cooperative. Speech: Patient's speech is rapid/pressured, rambles, loud tone. Mood/Affect: Her mood appears elevated, affect is broad. Suicidality/Homicidality: Patient denies having any suicidal or homicidal ideation intent or plan. Perceptions: Patient denies any visual hallucinations and denies any auditory hallucinations. Though process: Rambling, but more logical today and more directable. Thought content: Declines Memory and concentration: AOX3, grossly intact for the purposes of this session Judgment and insight: Chronically poor, improving mildly IMPRESSIONS: Schizoaffective disorder, bipolar type Nicotine dependence Plan: -Patient continues to meet criteria for inpatient psychiatric admission for symptom stabilization and safety. -Medications: Continue Depakene 1000 mg daily at bedtime +250 MG DAILY for mood stabilization. Patient is declining increase in dose at this time. Continue Risperdal 3 mg twice a day for psychosis/mood stabilization for now to bridge. Invega Sustenna 234 mg IM loading dose given 12/22/21 and tolerated well. She will need booster dose of 156 mg IM in 7 days. -When necessary Ativan and Haldol for agitation/aggression. -NRT - nicotine patch -Encouraged the patient to participate in milieu.
[2021-12-24] MEDS: risperiDONE 1 MG TAB PO SCH ×2 (09:03→21:11)
[2021-12-24] MEDS: VALPROIC ACID ORAL SOLN 250 MG/5 ML CUP PO SCH ×2 (09:03→21:11)
--- NOTE | 2021-12-24 14:11 | P.PN ---
Progress Note - Text Progress Note Date: 12/24/21 Interval History: Patient was seen wandering the hallways and was directable and agreeable to kylie eldridge with property underwriter day. Patient continues to ramble however this has been improving significantly. She claims that she is doing "okay" and denied any problems over the weekend. She continues to his sister mentioned illogical bizarre statements at times however this is been improving in frequency lately. She states that she is able to sleep better last night and hasn't improving appetite. She is denying any depression or anxiety today. Patient needs to demonstrate very poor insight and judgment which appeared to be chronically poor. She is agreeable to continue on with her medications and we spoke about long-acting injection. At this time patient denies any suicidal or homical ideations, intent or plan. Patient denies any auditory, visual hallucinations. Patient denies any side effects from the medications and has been compliant with meds. Mental Status Exam: General Appearance: Patient appears to be dressed in home in street clothing, stated age is alert, difficult to redirect. Patient appears to have improving hygiene and grooming. Behavior: Patient is seated without any agitated behavior. Difficult to redirect, improving mildly Speech: Patient's speech is rapid/pressured. Rambles, improving mildly. Mood/Affect: Patient reports their mood is "good", affect is congruent Suicidality/Homicidality: Patient denies having any homicidal ideation intent or plan. Denies any suicidal ideations intent or plan Perceptions: Patient denies any visual hallucinations at denies any auditory hallucinations. Though content/process: Tangential/circumstantial. Rambling, flight of ideas, improving mildly. more logical today and more directable Memory and concentration: AOX3, grossly intact for the purposes of this session Judgment and insight: Chronically poor, improving mildly IMPRESSIONS: Schizoaffective disorder, bipolar type nicotine dependence Plan: -Patient continues to meet criteria for inpatient psychiatric admission for symptom stabilization and safety. Patient has not signed medication consent and was placed in patient's chart. -Medications: Depakene, 1000 mg daily at bedtime +250 MG DAILY for mood stabilization. decrease Risperdal 2 mg twice a day for psychosis/mood stabilization. given Invega Sustenna 234 mg IM loading dose on 12/22 and will be due for her next dose on 12/26 -When necessary Ativan and Haldol for agitation/aggression. -NRT - nicotine patch -SW on board for discharge planning. Encouraged the patient to participate in milieu. currently on an ARABELLA. will need to started on a ELAINE prior to d.c. likely discharge in 2-3 days after [facility] patient in a nursing home.
[2021-12-25] MEDS: risperiDONE 1 MG TAB PO SCH (08:39)
[2021-12-25] MEDS: VALPROIC ACID ORAL SOLN 250 MG/5 ML CUP PO SCH ×2 (08:39→20:04)
--- NOTE | 2021-12-25 11:26 | P.PN ---
Progress Note - Text Progress Note Date: 12/25/21 Interval History: Patient was seen wandering the hallways and was directable and agreeable to sp jazmyn with junior technical writer day. Patient continues to ramble at times during the interview however appears to be more directable today. She also appears to be more logical and was not endorsing delusions today. She continues to demonstrate chronically poor insight and judgment. She believes that she does not have a guardian to make her own decisions. She spoke about different places where she liked to stay when she is discharged and continues to deny any depression or anxiety today. She claims that she started going to groups and participated this as she can. She states that her mood and anxiety been improving. She claims her appetite is been improving as well. We spoke about patient receiving the long-acting injection tomorrow and potential for discharge shortly after. At this time patient denies any suicidal or homical ideations, intent or plan. Patient denies any auditory, visual hallucinations. Patient denies any side effects from the medications and has been compliant with meds. Mental Status Exam: General Appearance: Patient appears to be dressed in home in street clothing, stated age is alert, difficult to redirect however is improving. Patient appears to have improving hygiene and grooming. Behavior: Patient is seated without any agitated behavior. Difficult to redirect, improving mildly Speech: Patient's speech is rapid/pressured. Rambles, improving mildly. Mood/Affect: Patient reports their mood is "ok", affect is congruent Suicidality/Homicidality: Patient denies having any homicidal ideation intent or plan. Denies any suicidal ideations intent or plan Perceptions: Patient denies any visual hallucinations at denies any auditory hallucinations. Though content/process: Tangential/circumstantial. Rambling, improving mildly. more logical today and more directable Memory and concentration: AOX3, grossly intact for the purposes of this session Judgment and insight: Chronically poor, improving mildly IMPRESSIONS: Schizoaffective disorder, bipolar type nicotine dependence Plan: -Patient continues to meet criteria for inpatient psychiatric admission for symptom stabilization and safety. Patient has not signed medication consent and was placed in patient's chart. -Medications: Depakene, 1000 mg daily at bedtime +250 MG DAILY for mood stabilization. Risperdal 2 mg twice a day for psychosis/mood stabilization will continue decreasing tomorrow. given Invega Sustenna 234 mg IM loading dose on 12/22 and will be due for her next dose on 12/26 -When necessary Ativan and Haldol for agitation/aggression. -NRT - nicotine patch -SW on board for discharge planning. Encouraged the patient to participate in milieu. currently on an ARABELLA. likely discharge tomorrow after second ELAINE and patient will go to a alf.
[2021-12-25] MEDS: risperiDONE 2 MG TAB PO SCH (20:03)
[2021-12-26 03:40] VITALS: BP 120/74; PULSE 107; RESP 14; TEMP 97.4
[2021-12-26] MEDS: risperiDONE 2 MG TAB PO SCH (07:43)
[2021-12-26] MEDS: VALPROIC ACID ORAL SOLN 250 MG/5 ML CUP PO SCH (07:43)
[2021-12-26] MEDS ORDERED: PALIPERIDONE IM 156 MG/ML SYG IM ONE (09:00)
--- NOTE | 2021-12-26 09:48 | P.DS ---
Providers Date of admission: 12/17/21 22:55 Expected date of discharge: 12/26/21 Attending physician: Jaskaran Jimenes MD Consults: 12/17/21 23:17 Consult Physician Routine Consulting Provider: Jovanna Nichols Consult Reason/Comments: H&P and medical Do you want consulting provider notified?: Yes Primary care physician: Ondina Gaffney - Discharge Diagnosis(es) (1) Schizoaffective disorder, bipolar type Current Visit: Yes Status: Acute Priority: High (2) Nicotine dependence Current Visit: Yes Status: Acute Priority: Low Hospital Course: Admission HPI: Admission note was completed by [resume writer] "[Patient is a 56-year-old female currently , homeless and has one son. Patient presented to the hospital yesterday on a pickup order currently on a mental health treatment in order. Patient apparently was a poor historian and uncooperative in the ER and did not believe that she was on a court order. Urine drug screen was negative. Patient was admitted last to the mental health unit less than a month ago and was discharged on Depakote and Seroquel. She signed a waive and stip at that time with her receiving manager and agreed to be on a order. Patient apparently did not take any medications once she left the hospital. Today she was seen wandering the hallways and agreeable entry writer. She was responding to internal stimuli. She was rambling, tangential and has loose associations. She had a flight of ideas. She was bizarre in her speech and thought content. She spoke negatively about her medication and states that "they made me sick" and also claims that she does not need them any longer. Very poor insight and judgment. Difficult to redirect during conversation. Denies any auditory or visual hallucinations. Denies any suicidal or homicidal ideations intent or plan. Claims that she is smoking cigarettes only, denies any other recreational drug use.]" Hospital course: Upon admission to the unit patient was [admitted on an active treatment order]. Patient got along well with other patients on the unit and followed unit protocol. Patient was compliant with the medications and denied any side effects throughout hospital course. Patient was started on Risperdal and increased the dose of 3 mg twice a day for psychosis. Patient was given Invega Sustenna loading dose 234 mg IM on 12/22 and will receive her next dose of 156 mg IM on 12/26. Patient will be given her next monthly dose on 01/16 of 234 mg IM. Patient was also started on depakote ER 500 mg daily + 1000 mg qhs for mood stabilization. Patient spoke of her stressors and engaged in therapy both group and individual. Patient was also seen by medical team for history and physical exam. [] Throughout the course of the hospitalization patient gradually improved with regards to psychosis, mood and anxiety, sleep and [returned back to their baseline level of functioning]. On the day of discharge patient denied any suicidal or homicidal ideations intent or plan denied any auditory or visual hallucinations. Patient endorsed wanting to live for her health and her future. The patient denied any access to guns or weapons. Patient denied any paranoia and did not endorse any delusions. Patient does [not] have a significant history of substance abuse [and] was counseled on abstaining from all substances including alcohol and marijuana. Patient was also counseled on the medications and need for regular compliance and was encouraged to follow-up with their outpatient appointment for mental health and also for primary care. [Prior to discharge a family meeting with her thom will be arranged by perinatal social worker to answer any questions and ensure safety upon discharge.] PAtient will be discharged today to retirement. Mental status exam: General Appearance: Patient appears to be []stated age is alert, pleasant, and cooperative. Patient is in no acute distress and has improved hygiene and grooming Behavior: Patient is calmly seated without any agitated behavior. Speech: Patient's speech is fluent and nonpressured. rambles at times. Mood/Affect: Patient reports their mood is "[better]", affect is congruent and euthymic. Suicidality/Homicidality: Patient denies having any suicidal or homicidal ideation intent or plan. Perceptions: Patient denies any auditory or visual hallucinations. Though content/process: There is no evidence of any delusional thought content and thought process is linear and goal-directed. Memory and concentration: AOX3, grossly intact for the purposes of this session. Can spell "WORLD" backwards correctly. Judgment and insight: [chronically poor, however has] improved with guarded prognosis Impression: schizoaffective disorder, bipolar type [Nicotine dependence] Plan: -Continue with discharge today as patient has improved and stabilized psychiatrically and is not currently an imminent threat to [herself] and/or others. [Patient will remain at chronically elevated risk for harm to self and/or others due to her impulsivity and chronically poor insight.] -Continue medications: []d/c PO Invega. Given Invega Sustenna loading dose 234 mg IM on 12/22 and will receive her next dose of 156 mg IM on 12/26. Patient will be given her next monthly dose on 01/16 of 234 mg IM. continue with Depakote ER 500 mg daily + 1000 mg qhs for mood stabilization. -Patient was counseled on the need for medication compliance and appropriate follow-up at mental health and also primary care for medical issues. Patient verbalized understanding and agreed. -Social work to [arrange for and conduct family meeting to ensure safety upon discharge and answer any questions/concerns.] Social work also to arrange for patients follow up appointments [with [facility]] for psychiatric care along with follow up with primary care provider. -Patient counseled on abstaining from recreational drugs and marijuana and alcohol. Was informed/educated on the adverse effects on their physical and mental health. [Patient verbally agreed and understood]. -Patient was instructed to return to the hospital or seek immediate medical care if their psychiatric or medical symptoms do worsen or reoccur. Allergies Allergy/AdvReac Type Severity Reaction Status Date / Time No Known Allergies Allergy Verified 12/17/21 13:45 Laboratory Results Urine Opiates Screen Not Detected (NotDetected) 12/17/21 13:06 Ur Oxycodone Screen Not Detected (NotDetected) 12/17/21 13:06 Urine Methadone Screen Not Detected (NotDetected) 12/17/21 13:06 Ur Propoxyphene Screen Not Detected (NotDetected) 12/17/21 13:06 Ur Barbiturates Screen Not Detected (NotDetected) 12/17/21 13:06 Valproic Acid 74.7 ug/mL 12/22/21 07:44 U Tricyclic Antidepress Not Detected (NotDetected) 12/17/21 13:06 Ur Phencyclidine Scrn Not Detected (NotDetected) 12/17/21 13:06 Ur Amphetamines Screen Not Detected (NotDetected) 12/17/21 13:06 U Methamphetamines Scrn Not Detected (NotDetected) 12/17/21 13:06 U Benzodiazepines Scrn Not Detected (NotDetected) 12/17/21 13:06 Urine Cocaine Screen Not Detected (NotDetected) 12/17/21 13:06 U Marijuana (THC) Screen Not Detected (NotDetected) 12/17/21 13:06 Coronavirus (PCR) Not Detected (Not Detectd) 12/26/21 07:47 Vital Signs Temp 97.4 F L 12/26/21 03:39 Pulse 107 H 12/26/21 03:39 Resp 14 12/26/21 03:39 BP 120/74 12/26/21 03:39 Pulse Ox 99 12/24/21 06:59 FiO2 Patient Condition at Discharge: Stable Plan - Discharge Summary Discharge Rx Participant: No New Discharge Prescriptions: New Divalproex ER [Depakote ER] 500 mg PO DAILY 30 Days #30 tab Paliperidone IM [Invega Sustenna] 234 mg IM QMONTHLY #1 each Continue Divalproex ER [Depakote ER] 1,000 mg PO HS 30 Days #60 tab Discontinued QUEtiapine [SEROquel] 300 mg PO HS 30 Days tab Discharge Medication List Divalproex ER [Depakote ER] 1,000 mg PO HS 30 Days #60 tab 12/26/21 [Rx] Divalproex ER [Depakote ER] 500 mg PO DAILY 30 Days #30 tab 12/26/21 [Rx] Paliperidone IM [Invega Sustenna] 234 mg IM QMONTHLY #1 each 12/26/21 [Rx] Follow up Appointment(s)/Referral(s): [facility] [Outside] - 12/26/21 9:30 am (12-26-21 at 9:30 with Lois Mo at [facility] 01-02-22 at 1:30 with DISTILLERY WORKER Tyler Harman for psych eval ) Ondina Gaffney MD [Primary Care Provider] - 1-2 days Patient Instructions/Handouts: How to Stop Smoking (DC), Schizoaffective Disorder (DC) Activity/Diet/Wound Care/Special Instructions: Avoid the use of street drugs and alcohol. Take all prescriptions as prescribed. When you are in need of refills on your medications, please contact your medical provider and/or outpatient psychiatrist to have this done. Please go to scheduled outpatient appointment for aftercare treatment. If symptoms return or become worse, call the crisis line at and/or go to the nearest emergency room for evaluation. Discharge Disposition: OTHER INSTITUTION NOT DEFINED
== END 2021-12-26 10:15 | disposition home or self-care (01) | DRG 885 ==
LOC: EEVIPCON 12:11 → SUPCPDRO 12:11 → EC 12:11 → 3MHU 22:55
PROVIDERS: ADMIT Psychiatry & Neurology Psychiatry; ATTEND Psychiatry & Neurology Psychiatry
DX: F25.0 Schizoaffective disorder, bipolar type (principal); Z91.19 Patient's noncompliance with other medical treatment and regimen; Z20.822 Contact with and (suspected) exposure to COVID-19; F41.9 Anxiety disorder, unspecified; R13.10 Dysphagia, unspecified; F17.210 Nicotine dependence, cigarettes, uncomplicated; Z71.6 Tobacco abuse counseling; Z79.899 Other long term (current) drug therapy; Z59.00 Homelessness unspecified; Z71.41 Alcohol abuse counseling and surveillance of alcoholic; Z71.51 Drug abuse counseling and surveillance of drug abuser
CPT/HCPCS: 80164; 80306; 82075; 87635; 99285

== ENCOUNTER → 2022-04-03 | Outpatient (CLI) | payer MEDICARE, MEDICAID ==
[2022-04-03 11:43] LABS: ALT 17 U/L (8-44); AST 19 U/L (13-35); African American GFR (CKD) 126.3 (60.0-200.0); Albumin 4.5 g/dL (3.8-4.9); Albumin/Globulin Ratio 1.55 (1.60-3.17); Alkaline Phosphatase 67 U/L (41-126); Bilirubin, Conjugated <0.20 mg/dL (0.20-0.40); Blood Urea Nitrogen 10.7 mg/dL (9.0-27.0); Chol/HDL Ratio 3.25 Ratio; Globulin 2.9 g/dL (1.6-3.3); Glucose 106 mg/dL (70-110); LDL Cholesterol,Calculated 120.7 mg/dL (0.0-131.0); Total Protein 7.4 g/dL (6.2-8.2); VLDL Calculation 16.42 mg/dL (5.00-40.00)
== END | disposition home or self-care (01) ==
LOC: LABWHC1 07:19
PROVIDERS: ATTEND Psychiatry & Neurology Psychiatry
DX: F25.0 Schizoaffective disorder, bipolar type (principal); Z79.899 Other long term (current) drug therapy
CPT/HCPCS: 36415; 80061; 80076; 80178; 82565; 82947; 83036; 84439; 84443; 84520

== ENCOUNTER → 2022-10-31 | Outpatient (CLI) | payer OTHER, MEDICARE ==
[2022-10-31 16:24] LABS: Basophils # (A) 0.08 X 10*3/uL (0.00-0.10); Basophils % (A) 0.8 %; HCT 40.6 % (37.2-46.3); Lymphocytes # (A) 2.13 X 10*3/uL (0.90-5.00); MCH 30.1 pg (27.0-32.0); Mean Platelet Volume 11.3 FL (9.5-12.2); Monocytes # (A) 0.73 X 10*3/uL (0.20-1.00); Monocytes % (A) 7.2 %; NRBC Per 100 WBC 0 X 10*3/uL (0.00-0.01); Neutrophils # (A) 7.04 X 10*3/uL (1.80-7.70); Neutrophils % (A) 69.4 %; Platelet Count 211 X 10*3/uL (140-440); RBC 4.32 X 10*6/uL (4.10-5.20); WBC 10.14 X 10*3/uL (4.50-10.00)
[2022-10-31 16:43] LABS: ALT 38 U/L (8-44); AST 23 U/L (13-35); Albumin 4.3 d/dL (3.8-4.9); Albumin/Globulin Ratio 1.65 Ratio (1.60-3.17); Alkaline Phosphatase 82 U/L (41-126); BUN/Creat Ratio 9.33 Ratio (12.00-20.00); Blood Urea Nitrogen 5.6 mg/dL (9.0-27.0); Calcium 9.4 mg/dL (8.7-10.3); Carbon Dioxide 24.2 mmol/L (21.6-31.8); Chloride 103 mmol/L (96-109); Chol/HDL Ratio 3.73 Ratio; Globulin 2.6 d/dL (1.6-3.3); Glucose 106 mg/dL (70-110); LDL Cholesterol,Calculated 133.3 mg/dL (0.0-131.0); Potassium 4.2 mmol/L (3.5-5.5); Sodium 142 mmol/L (135-145); T4, Free (Free Thyroxine) 1.18 ng/dL (0.80-1.80); Total Bilirubin 0.2 mg/dL (0.3-1.2); Total Protein 6.9 d/dL (6.2-8.2); VLDL Calculation 19.64 mg/dL (5.00-40.00)
[2022-10-31 21:35] LABS: Valproic Acid (Depakene) 51.3 UG/ML (50.0-100.0)
== END | disposition home or self-care (01) ==
LOC: LABWHC1 09:33
PROVIDERS: ATTEND Psychiatry & Neurology Psychiatry
DX: F25.0 Schizoaffective disorder, bipolar type (principal); Z79.899 Other long term (current) drug therapy
CPT/HCPCS: 36415; 80053; 80061; 80164; 80178; 82306; 84439; 84443; 85025

== ENCOUNTER → 2023-02-03 | Outpatient (CLI) | payer MEDICARE, OTHER ==
--- NOTE | 2023-02-03 09:12 | US ---
EXAMINATION TYPE: US kidneys/renal and bladder DATE OF EXAM: 02/03/2023 COMPARISON: NONE CLINICAL INDICATION: Female, 57 years old with history of N28.9 DISORDER OF KIDNEY AND URETER, UNSPEC IFIED; Decreased renal function EXAM MEASUREMENTS: Right Kidney: 12.1 x 5.5 x 4.9 cm Left Kidney: 12.4 x 5.6 x 4.6 cm Post Void Residual Volume: 27 mL Right Kidney: Mild pelvocaliectasis. Left Kidney: Appears wnl Bladder: wnl Bilateral Jets seen: yes Normal Post Void Residual: yes There is no evidence for hydronephrosis at this point in time. Mild right pelvocaliectasis. No nephr olithiasis is seen. No masses are identified. Cortical medullary differentiation is maintained bilat erally. The urinary bladder is anechoic. Bilateral ureteral jets are seen. IMPRESSION: Mild right pelvocaliectasis without overt hydronephrosis.
[2023-02-03 14:02] LABS: Basophils # (A) 0.09 X 10*3/uL (0.00-0.10); Eosinophils # (A) 0.08 X 10*3/uL (0.04-0.35); Eosinophils % (A) 0.8 %; HCT 44.3 % (37.2-46.3); Lymphocytes # (A) 1.85 X 10*3/uL (0.90-5.00); Lymphocytes % (A) 19.6 %; MCH 29.1 pg (27.0-32.0); MCHC 31.6 d/dL (32.0-37.0); MCV 92.1 FL (80.0-97.0); Mean Platelet Volume 11.7 FL (9.5-12.2); Monocytes # (A) 0.76 X 10*3/uL (0.20-1.00); NRBC Per 100 WBC 0 X 10*3/uL (0.00-0.01); Neutrophils # (A) 6.61 X 10*3/uL (1.80-7.70); Neutrophils % (A) 69.9 %; Platelet Count 194 X 10*3/uL (140-440); RBC 4.81 X 10*6/uL (4.10-5.20); RDW 13.7 % (11.5-14.5); WBC 9.46 X 10*3/uL (4.50-10.00)
[2023-02-03 14:06] LABS: Appearance,Urine Clear (Clear); Bilirubin,Urine Negative (Negative); Blood,Urine Negative (Negative); Color,Urine Yellow (Yellow); Ketones,Urine Negative (Negative); Nitrite,Urine Negative (Negative); Specific Gravity,Urine 1.004 (1.001-1.030); Urobilinogen,Urine 0.2 E.U./DL
[2023-02-03 14:28] LABS: ALT 36 U/L (8-44); AST 20 U/L (13-35); Albumin 4.9 d/dL (3.8-4.9); Albumin/Globulin Ratio 1.75 Ratio (1.60-3.17); Alkaline Phosphatase 91 U/L (41-126); BUN/Creat Ratio 14.33 Ratio (12.00-20.00); Blood Urea Nitrogen 8.6 mg/dL (9.0-27.0); Calcium 9.9 mg/dL (8.7-10.3); Carbon Dioxide 27.1 mmol/L (21.6-31.8); Chloride 99 mmol/L (96-109); Globulin 2.8 d/dL (1.6-3.3); Glucose 148 mg/dL (70-110); Phosphorus 4.6 mg/dL (2.4-5.1); Potassium 4.7 mmol/L (3.5-5.5); Sodium 139 mmol/L (135-145); Total Bilirubin <0.2 mg/dL (0.3-1.2); Total Protein 7.7 d/dL (6.2-8.2)
== END | disposition home or self-care (01) ==
LOC: RADUSWWP 07:28
PROVIDERS: ATTEND Family Medicine
DX: N28.89 Other specified disorders of kidney and ureter (principal)
CPT/HCPCS: 76770; 80053; 81003; 84100; 85025

== ENCOUNTER → 2024-09-07 | Outpatient (CLI) | payer MEDICARE, OTHER ==
--- NOTE | 2024-09-07 15:52 | CTL ---
EXAMINATION TYPE: CT Low Dose Lung DATE OF EXAM ORDERED: 09/07/2024 COMPARISON: CLINICAL INDICATION: Female, 59 years old with history of Z12.2 LUNG CA SCREEN F17.210 CURRENT SMOKER ; [facility], Current smoker, 1 ppd x 38 years., Lung cancer screening, History of Smoking/tobacco use. TECHNIQUE: Low dose computed tomography scan was performed through the chest at 1 mm thick sections a nd reconstructed images in multiple planes at 1 mm and [address] DLP: 95.[address] CTDI: 2.6 mGy Automated exposure control for dose reduction was used. CT DIAGNOSTIC QUALITY: Satisfactory EXAMINATION TYPE: CT Low Dose Lung DATE OF EXAM ORDERED: 09/07/2024 CLINICAL INDICATION: Female, 59 years old with history of Z12.2 LUNG CA SCREEN F17.210 CURRENT SMOKER , history of tobacco use, Lung cancer screening CT DLP: 95.[address] CTDI: 2.6 mGy Automated exposure control for dose reduction was used. Comparison: None TECHNIQUE: Low dose computed tomography scan was performed through the chest at 1 mm thick sections a nd reconstructed images in multiple planes at 1 mm and [address] DIAGNOSTIC QUALITY: Satisfactory FINDINGS: There is no suspicious lung mass or nodule. There are a few micronodules.. There is no airspace consolidation or abnormal interstitial density. There is no mediastinal, hilar or axillary adenopathy. There is no pleural effusion, pleural thickening or pneumothorax. No focal osseous lesions are seen. Limited scans the upper abdomen reveals no gross abnormality IMPRESSION: 1. Lung rads Category 1 negative. Continue routine screening at yearly intervals. 2. No acute cardiopulmonary disease. [facility], , 09/07/2024 3:49 PM
--- NOTE | 2024-09-08 07:36 | MM ---
Reason for Exam: Screening (asymptomatic). Last mammogram was performed 7 year(s) and 0 month(s) ago. Patient History: Menarche at age 14. First Full-Term at age 31. Late child-bearing (after 31). Postmenopausal. Benign Excisional Biopsy on the right side. Paternal grandmother had breast cancer, age 80. Risk Values: Jess 5 year model risk: 2.2%. NCI Lifetime model risk: 12.2%. Prior Study Comparison: 03/19/2011 Screening Mammogram, [place]. 08/01/2016 Bilateral Screening Mammogram, [facility]. 08/27/2017 Bilateral Diagnostic Mammogram, [facility]. Tissue Density: The breasts are heterogeneously dense, which may obscure small masses. Findings: Analyzed By CAD. There is no suspicious group of microcalcifications or new suspicious mass in either breast. Overall Assessment: Benign, BI-RAD 2 Management: Screening Mammogram of both breasts in 1 year. . Patient should continue monthly self-breast exams. A clinical breast exam by your physician is recommended on an annual basis. This exam should not preclude additional follow-up of suspicious palpable abnormalities. Note on Jess scores and lifetime risk: 1. A Jess score greater than 3% is considered moderate risk. If this is the case, consider specialist referral to assess eligibility for a risk reducing agent. 2. If overall lifetime risk for the development of breast cancer is 20% or higher, the patient may qualify for future screening with alternating mammogram and breast MRI. [facility], , 09/08/2024 7:33 AM. Electronically signed and approved by: Sigifredo Bond M.D. [facility]
== END | disposition home or self-care (01) ==
LOC: RADCTMAIN 14:39 → EEVIPCON 15:30
PROVIDERS: ATTEND Family Medicine
DX: Z12.31 Encounter for screening mammogram for malignant neoplasm of breast (principal); Z12.2 Encounter for screening for malignant neoplasm of respiratory organs; R92.333 Mammographic heterogeneous density, bilateral breasts; F17.210 Nicotine dependence, cigarettes, uncomplicated; Z78.0 Asymptomatic menopausal state; Z80.3 Family history of malignant neoplasm of breast
CPT/HCPCS: 71271; 77067